=== PATIENT | female | born 1950 | race Caucasian/White ===

== ENCOUNTER 2024-06-08 16:37 | Inpatient (IN) | payer MEDICARE, SELFPAY ==
[2024-06-08] VITALS (12 sets, daily range): BP systolic 112–133; BP diastolic 64–79; PULSE 111–126; RESP 13–23; TEMP 37.1; O2SAT 93–98
--- NOTE | ~2024-06-08 | XR_ITS ---
XR ankle RT min 3V Ordering provider: Smiley Villa PA-C History: . pain, hot to the touch . Comparison: None. FINDINGS: BONES: No acute fracture or dislocation. malalignment in the calcaneus and talus is noted. Flat foot is also seen. Calcaneus Spur. JOINT SPACES: Narrowing of the subtalar joint. SOFT TISSUES: Soft tissue swelling seen over the dorsum of the plantar aspects of the foot. IMPRESSION: No definite acute osseous abnormality of the right ankle. Malalignment between the calcaneus and talu s is not excluded. CT is better to evaluate the findings. Reviewed, dictated and finalized at location A. IMPRESSION: No definite acute osseous abnormality of the right ankle. Malalignment between the calcaneus and talus is not excluded. CT is better to evaluate the findings.
--- NOTE | ~2024-06-08 | CT_ITS ---
CT abdomen pelvis wo con Ordering provider: Anna Pfeiffer MD History: 74 years Female with . back/abd pain, h/o recent ureteral stent . Comparison: Technique: CT abdomen and pelvis with IV and without oral contrast. Automated exposure control and it erative reconstruction technique were employed. The dose-length product was 1280.47 mGy-cm. Findings: VISUALIZED LOWER CHEST: Dependent atelectatic changes. Soft tissue density seen adjacent to the cardi ac apex which may be a cyst measuring 3.4 x 2.7 cm. UPPER ABDOMINAL ORGANS: Liver: Normal. Gallbladder: Normal. Spleen: Normal. Stomach/duodenum: Sliding hiatus hernia. Pancreas: Normal. Adrenals: Normal. Kidneys: Bilateral double-J stent. Stone in the left kidney upper pole measuring 7 mm. Tiny stone is seen in the left kidney midpole.Mild hydronephrotic changes noted. Mild hydronephrotic changes seen in the right kidney with tiny stone in the lower pole. Small hypodensity seen inferior to the left adrenal pelvis which may be minimal extravasation cyst al so is possible. PELVIC ORGANS: The bladder is normal. BOWEL AND MESENTERY: Colon: No evidence of diverticulitis. Normal appendix. Small Bowel: Normal. No obstruction. Peritoneum/mesentery: No free air or free fluid. No mesenteric lymphadenopathy. RETROPERITONEUM: Mild atheromatous disease of the abdominal aorta. No retroperitoneal lymphadenopat hy. MUSCULOSKELETAL: Superficial soft tissues: The superficial soft tissues are normal. Bones: Age appropriate degenerative changes of the spine. Postoperative changes at the level of L5. Fusion seen at the levels of T11, T12 and L1. S-shaped scol iosis. IMPRESSION: 1. Bilateral double-J stent. 2. Stone in the left kidney upper pole with tiny stone in the midpole. Hydronephrotic changes. 3. Tiny stone in the right kidney lower pole. Hydronephrotic changes. 4. No evidence of appendicitis, diverticulitis or intestinal obstruction. 5. Sliding hiatus hernia with the majority of the stomach in the chest 6. Soft tissue density adjacent to the heart which may be a pericardiac cyst. Follow-up advised. Reviewed, dictated and finalized at location A. IMPRESSION: 1. Bilateral double-J stent. 2. Stone in the left kidney upper pole with tiny stone in the midpole. Hydrone phrotic changes. 3. Tiny stone in the right kidney lower pole. Hydronephrotic changes. 4. No evidence of appendicitis, diverticulitis or intestinal obstruction. 5. Sliding hiatus hernia with the majority of the stomach in the chest 6. Soft tissue density adjacent to the heart which may be a pericardiac cyst. Follow-up advised.
--- NOTE | ~2024-06-08 | CT_ITS ---
Procedure: CT ankle RT wo con Ordering provider: Anna Pfeiffer MD History: . injury/deformity? . Comparison: None. Technique: Thin slice axial CT of the No IV contrast was given. Sagittal and coronal reformatted imag es were also obtained and reviewed. Radiation reduction technique utilized.. The dose-length product was 395.31 mGy-cm. Findings: BONES: No definite fractures seen. Severe osteopenia of the bones is noted. Prominent os calcis is no kaylan. Calcaneus spur. Lateral displacement of the foot compared to the tibia and fibula is noted. Clinical correlation advi sed. JOINT SPACES: Narrowing of the talonavicular joint. Widening of the distance between the calcaneus and in the fibula is noted. SOFT TISSUES: Soft tissue density seen in the subcutaneous tissues medially and laterally suggestive of edema. Fat stranding also seen. IMPRESSION: No evidence of fracture. Severe osteopenia of the bones. Lateral relation of the foot bones compared to the tibia and fibula. Clinical correlation advised. Reviewed, dictated and finalized at location A. IMPRESSION: No evidence of fracture. Severe osteopenia of the bones. Lateral relation of the foot bones compared to the tibia and fibula. Clinical c orrelation advised.
--- NOTE | 2024-06-08 17:10 | ECG_ITS ---
Test Date: 2024-06-08 17:18:38 Measurements Intervals New Site Rate: 120 P: 36 WI: 144 QRS: 14 QRSD: 116 T: -10 QT: 328 QTc: 465 Interpretive Statements SINUS TACHYCARDIA INCOMPLETE RIGHT BUNDLE BRANCH BLOCK BORDERLINE ST-T WAVE ABNORMALITY- ANT/INF LEADS ABNORMAL ECG No previous ECG available for comparison Electronically Signed On 06-09-2024 06:31:18 CDT by Alonzo Robertson D.O.
[2024-06-08 18:44] LABS: Basophils Percent Auto 0.2 % (0.2-1.2); Hematocrit 39.1 % (37.0-47.0); Hemoglobin 12.4 g/dL (12.0-15.0); Immature Granulocyte Absolute 0.13 K/mm3 (0.00-0.031); Immature Granulocyte Percent A 0.7 % (0-0.5); Lymphocytes Absolute Auto 1.74 K/mm3 (0.9-3.2); Mean Corpuscular HGB Conc 31.7 g/dl (32-36); Mean Corpuscular Hemoglobin 32.3 pg (26-34); Mean Corpuscular Volume 101.8 fl (80-100); Mean Platelet Volume 10.6 fl (7.4-10.4); Monocytes Absolute Auto 1.3 K/mm3 (0.1-0.6); Monocytes Percent Auto 7.4 % (2.6-8.5); Neutrophils Absolute Auto 14.2 K/mm3 (1.3-6.7); Neutrophils Percent Auto 81.7 % (45.5-73.1); Platelet Count Result 264 k/mm3 (150-375); Red Blood Count 3.84 M/mm3 (4.2-5.4); Red Cell Distribution Width 13.5 % (11.5-14.5); White Blood Count 17.4 K/mm3 (4.5-10.0)
[2024-06-08 19:08] LABS: Alanine Aminotransferase 8 U/L (6-35); Albumin Level 3.2 g/dL (3.5-5.1); Alkaline Phosphatase 106 U/L (38-126); Anion Gap 9 mmol/L (4-12); Aspartate Amino Transferase 18 U/L (14-36); Bilirubin,Total 0.9 mg/dL (0.2-1.3); Blood Urea Nitrogen 21 mg/dL (7-17); Calcium 8.2 mg/dL (8.4-10.2); Carbon Dioxide 33 mmol/L (22-30); Chloride 91 mmol/L (98-107); Estimated CRCL calculation 52 ml/min; Estimated Glomerular Filt Rate > 60; Glucose 126 mg/dL (65-110); Lipase 40 U/L (23-300); Potassium 3.6 mmol/L (3.4-5.0); Sodium 133 mmol/L (137-145)
[2024-06-08 19:19] LABS: CRP 29.6 mg/dL (<1.0)
[2024-06-08 19:38] LABS: Erythrocyte Sedimentation Rate 114 mm/hr (0-20)
--- NOTE | 2024-06-08 19:53 | ED.GENADULT ---
HPI - General Adult General Chief complaint: Extremity Problem,Nontraumatic Stated complaint: abd pain, R foot pain Time Seen by Provider: 06/08/24 19:05 History of Present Illness HPI narrative: Patient states that she is here because she initially was having pain to her lower back and stomach, though it is better now. She also has pain to R ankle but states this has happened before. History of recent ureter stent. Related Data Home Medications Medication Instructions Recorded Confirmed oxycodone 10 mg tablet 10 mg PO Q4H PRN 06/07/24 06/07/24 Allergies Allergy/AdvReac Type Severity Reaction Status Date / Time Penicillins Allergy Unknown Verified 06/08/24 17:06 Review of Systems Review of Systems: All systems reviewed & are unremarkable except as noted in HPI and below PMFSH Social History Social History Smoking status: Never smoker Exam Narrative: EXAMINATION OF ORGAN SYSTEMS/BODY AREAS: Constitutional: Vital signs per nursing GENERAL: Sleeping HEAD: Normal with no signs of head trauma. EYES: EOMI, conjunctiva normal ENT: Hearing grossly intact LUNGS: Nonlabored breathing. HEART: Tachycardic ABD: [Soft], [nontender to palpation] EXT: What appears to be chronic deformity to bilateral ankles SKIN: Slight redness and tenderness to medial malleolus of ankle NEURO: [Alert. No gross focal sensory or strength deficits.] PSYCH: Normal affect Course Vital Signs Vital signs: Vital Signs Temperature 98.7 F 06/08/24 16:38 Pulse Rate 126 H 06/08/24 16:38 Respiratory Rate 20 06/08/24 16:38 Blood Pressure 122/73 06/08/24 16:38 Pulse Oximetry 93 06/08/24 16:38 Oxygen Delivery Nasal Cannula 06/08/24 16:38 Oxygen Flow Rate 2 06/08/24 16:38 Temperature 98.7 F 06/08/24 16:38 Pulse Rate 103 H 06/09/24 03:10 Respiratory Rate 15 06/09/24 03:10 Blood Pressure 119/84 06/09/24 03:10 Pulse Oximetry 96 06/09/24 03:11 Oxygen Delivery Nasal Cannula 06/09/24 03:11 Oxygen Flow Rate 2 06/09/24 03:11 Medical Decision Making [facility] Narrative Medical decision making narrative: patient with history of recent ureteral stent placement presents with abdominal pain and ankle pain, on evaluation she does have some slight redness to the right ankle however what appears to be chronic deformities to both ankles I suspect most likely inflammatory joint disease, she does however have a white count, and was tachycardic, so blood cultures are ordered infectious protocol initiated with antibiotics started. Urinalysis obviously UTI, white count is elevated at 17 with elevated ESR and CRP, I did obtain a CT abdomen / pelvis to ensure stents are in place. D/w Dr Koch urology [facility] who feels patient should not be transferred as they will not offer any additional resources; I did relate that the stents were placed at outside [facility], as well as the fact that we have no medical records on her here because she is usually in the [facility] system so for her would also allow for continuity of care, the urologist still says that patient should stay here in our hospital. D/w hospitalist for admission. Vital Signs Vital Signs: Vital Signs Temperature 98.7 F 06/08/24 16:38 Pulse Rate 126 H 06/08/24 16:38 Respiratory Rate 20 06/08/24 16:38 Blood Pressure 122/73 06/08/24 16:38 Pulse Oximetry 93 06/08/24 16:38 Oxygen Delivery Nasal Cannula 06/08/24 16:38 Oxygen Flow Rate 2 06/08/24 16:38 Temperature 98.7 F 06/08/24 16:38 Pulse Rate 103 H 06/09/24 03:10 Respiratory Rate 15 06/09/24 03:10 Blood Pressure 119/84 06/09/24 03:10 Pulse Oximetry 96 06/09/24 03:11 Oxygen Delivery Nasal Cannula 06/09/24 03:11 Oxygen Flow Rate 2 06/09/24 03:11 Lab Data 06/08/24 18:36 06/08/24 18:36 Labs: Lab Results 06/08/24 06/08/24 06/08/24 Range/Units 18:36 18:37 20:19 WBC 17.4 H (4.5-10.0) K/mm3 RBC 3.84 L (4.2-5.4) M/mm3 Hgb 12.4 (12.0-15.0) g/dL Hct 39.1 (37.0-47.0) % MCV 101.8 H (80-100) fl MCH 32.3 (26-34) pg MCHC 31.7 L (32-36) g/dl RDW 13.5 (11.5-14.5) % Plt Count 264 (150-375) k/mm3 MPV 10.6 H (7.4-10.4) fl Immature Gran % (Auto) 0.7 H (0-0.5) % Neut % (Auto) 81.7 H (45.5-73.1) % Lymph % (Auto) 10.0 L (18.3-44.2) % Dauphin % (Auto) 7.4 (2.6-8.5) % Eos % (Auto) 0.0 (0-4.4) % Baso % (Auto) 0.2 (0.2-1.2) % Lymph # (Auto) 1.74 (0.9-3.2) K/mm3 Dauphin # (Auto) 1.3 H (0.1-0.6) K/mm3 Eos # (Auto) 0.0 (0-0.3) K/mm3 Baso # (Auto) 0.0 (0.0-0.1) K/mm3 Abs Immat Gran (auto) 0.13 H (0.00-0.031) K/mm3 Absolute Neuts (auto) 14.2 H (1.3-6.7) K/mm3 Absolute Nucleated RBC 0.000 (0.0-0.012) K/mm3 Nucleated RBC % 0.0 (0.0-0.2) % ESR 114 H (0-20) mm/hr PT 14.6 (11.1-14.7) Seconds INR 1.1 APTT 36.6 (22.3-36.8) Seconds Sodium 133 L (137-145) mmol/L Potassium 3.6 (3.4-5.0) mmol/L Chloride 91 L (98-107) mmol/L Carbon Dioxide 33 H (22-30) mmol/L Anion Gap 9 (4-12) mmol/L BUN 21 H (7-17) mg/dL Creatinine 0.90 (0.7-1.0) mg/dL Estim Creat Clear Calc 52 ml/min Estimated GFR > 60 (59 - ) Glucose 126 H (65-110) mg/dL Lactic Acid 1.9 (0.7-2.0) mmol/L Calcium 8.2 L (8.4-10.2) mg/dL Total Bilirubin 0.9 (0.2-1.3) mg/dL AST 18 (14-36) U/L ALT 8 (6-35) U/L Alkaline Phosphatase 106 (38-126) U/L C-Reactive Protein 29.6 H (<1.0) mg/dL Total Protein 7.0 (6.3-8.2) g/dL Albumin 3.2 L (3.5-5.1) g/dL Lipase 40 (23-300) U/L Urine Color (Yellow) Urine Appearance (Clear) Urine pH (5.0-9.0) Ur Specific Mcdonough (1.001-1.035) Urine Protein (Negative) mg/dL Urine Glucose (UA) (Negative) mg/dL Urine Ketones (Negative) mg/dL Ur Blood (Man) (Negative) Urine Nitrate (Negative) Urine Bilirubin (Negative) Urine Urobilinogen (<2.0) mg/dL Add Ur Microanalysis Leukocyte Esterase Rfl (Negative) INES/UL Urine RBC (0-2) /hpf Urine WBC (0-3) /hpf Ur Squamous Epith Cells (Few) /hpf Amorphous Sediment (None) Urine Bacteria /hpf Urine Casts Hyaline Casts (None) /lpf 06/08/24 Range/Units 22:32 WBC (4.5-10.0) K/mm3 RBC (4.2-5.4) M/mm3 Hgb (12.0-15.0) g/dL Hct (37.0-47.0) % MCV (80-100) fl MCH (26-34) pg MCHC (32-36) g/dl RDW (11.5-14.5) % Plt Count (150-375) k/mm3 MPV (7.4-10.4) fl Immature Gran % (Auto) (0-0.5) % Neut % (Auto) (45.5-73.1) % Lymph % (Auto) (18.3-44.2) % Dauphin % (Auto) (2.6-8.5) % Eos % (Auto) (0-4.4) % Baso % (Auto) (0.2-1.2) % Lymph # (Auto) (0.9-3.2) K/mm3 Dauphin # (Auto) (0.1-0.6) K/mm3 Eos # (Auto) (0-0.3) K/mm3 Baso # (Auto) (0.0-0.1) K/mm3 Abs Immat Gran (auto) (0.00-0.031) K/mm3 Absolute Neuts (auto) (1.3-6.7) K/mm3 Absolute Nucleated RBC (0.0-0.012) K/mm3 Nucleated RBC % (0.0-0.2) % ESR (0-20) mm/hr PT (11.1-14.7) Seconds INR APTT (22.3-36.8) Seconds Sodium (137-145) mmol/L Potassium (3.4-5.0) mmol/L Chloride (98-107) mmol/L Carbon Dioxide (22-30) mmol/L Anion Gap (4-12) mmol/L BUN (7-17) mg/dL Creatinine (0.7-1.0) mg/dL Estim Creat Clear Calc ml/min Estimated GFR (59 - ) Glucose (65-110) mg/dL Lactic Acid (0.7-2.0) mmol/L Calcium (8.4-10.2) mg/dL Total Bilirubin (0.2-1.3) mg/dL AST (14-36) U/L ALT (6-35) U/L Alkaline Phosphatase (38-126) U/L C-Reactive Protein (<1.0) mg/dL Total Protein (6.3-8.2) g/dL Albumin (3.5-5.1) g/dL Lipase (23-300) U/L Urine Color Red H (Yellow) Urine Appearance Turbid H (Clear) Urine pH 5.0 (5.0-9.0) Ur Specific Mcdonough 1.022 (1.001-1.035) Urine Protein 1+ H (Negative) mg/dL Urine Glucose (UA) Negative (Negative) mg/dL Urine Ketones Negative (Negative) mg/dL Ur Blood (Man) 1+ H (Negative) Urine Nitrate Positive H (Negative) Urine Bilirubin 1+ H (Negative) Urine Urobilinogen 0.2 (<2.0) mg/dL Add Ur Microanalysis Reviewed Leukocyte Esterase Rfl 3+ H (Negative) INES/UL Urine RBC >100 H (0-2) /hpf Urine WBC >100 H (0-3) /hpf Ur Squamous Epith Cells Many H (Few) /hpf Amorphous Sediment Moderate H (None) Urine Bacteria 4+ H /hpf Urine Casts 11-20 Hyaline Casts Present (None) /lpf Critical Care Time Critical Care Time Critical Care Time: Yes Total Critical Care Time: 31 Discharge Plan Discharge Clinical Impression: Ankle pain, Acute UTI Patient Disposition: Still a Patient Condition: Stable
[2024-06-08 20:11] LABS: INR 1.1; Prothrombin Time 14.6 Seconds (11.1-14.7)
[2024-06-08 20:12] LABS: Partial Thromboplastin Time 36.6 Seconds (22.3-36.8)
[2024-06-08] MEDS: CEFEPIME 2 GM/NS 50 ML 2 GM/50 ML BAG IVPB (20:21)
[2024-06-08 21:00] LABS: Lactic Acid Reflex 1.9 mmol/L (0.7-2.0)
[2024-06-08] MEDS: VANCOMYCIN 1,000 MG/NS 250 ML 1,000 MG/250 ML BAG 250 MG IVPB (21:12)
[2024-06-08 22:57] LABS: Add Urine Microscopic? YES; Appearance Urine Turbid (Clear); Bacteria Urine 4+ /hpf; Bilirubin Urine 1+ (Negative); Blood Urine 1+ (Negative); Color Urine Red (Yellow); Glucose Urine UA Negative (Negative); Hyaline Casts Urine Present /lpf; Ketones Urine Negative (Negative); Leukocyte Esterase Ur 3+ LEU/UL (Negative); Need Manual Microscopic Reviewed; Nitrate Urine Positive (Negative); Protein Urine 1+ mg/dL (Negative); RBC Urine >100 /hpf (0-2); Specific Grav Ur 1.022 (1.001-1.035); Squamous Epithelial Cell Urine Many /hpf (Few); Urobilinogen Urine 0.2 mg/dL (<2.0); WBC Urine >100 /hpf (0-3)
[2024-06-08 22:58] LABS: Amorphous Sediment Urine Moderate
[2024-06-08] MEDS: cefTRIAXone 2 GM/NS 100 ML 2 GM/100 ML BAG IVPB (23:17)
--- NOTE | 2024-06-08 23:37 | PC.NURSE ---
care and report given to SHRAAD Aguilar. all questions answered
[2024-06-09] VITALS (21 sets, daily range): BP systolic 106–124; BP diastolic 60–84; PULSE 93–113; RESP 15–20; TEMP 36.4–36.7; O2SAT 93–97; BMI 36.8
--- NOTE | 2024-06-09 | ECHO_ITS ---
Patient Info Name: Reanna Umana Age: 74 years : 1950 Gender: Female Ht: 59 in Wt: 134 lbs BSA: 1.61 m2 HR: 103 bpm BP: 115 / 66 mmHg Heart Rhythm: Sinus Rhythm, Right Bundle Branch Block Technical Quality: Good Exam Date: 06/09/2024 10:24 AM Exam Location: Echo Lab Patient Status: Inpatient Admit Date: 06/09/2024 Staff Ordering Physician: Pamela Dudley NP Benzene Operator: John Faulkner RDCS Attending Provider: Stephy Hawkins DO Referring Physician: Luis Enrique COOLEY; Exam Type: CA echo doppler color flow Study Info Indications - pericardial cyst noted on ct scan Complete two-dimensional, color flow and Doppler transthoracic echocardiogram is performed. Summary 1. Left ventricular chamber dimension is normal. 2. There is moderate asymmetric basal septal increased left ventricular wall thickness. 3. Left ventricular systolic function is normal, estimated at 60-65%. 4. The left ventricular diastolic function is grade I diastolic dysfunction. 5. Right ventricular systolic function is normal. 6. Left atrial chamber dimension is mildly enlarged. 7. There is mild to moderate aortic valve regurgitation. 8. There is mild tricuspid valve regurgitation. Left Ventricle Left ventricular chamber dimension is normal. Left ventricular systolic function is normal, estimated at 60-65%. There is moderate asymmetric basal septal increased left ventricular wall thickness. Left ventricular septal wall motion is abnormal with septal motion related to bundle branch block. The left ventricular diastolic function is grade I diastolic dysfunction. Right Ventricle Right ventricular chamber dimension is normal. Right ventricular systolic function is normal. Left Atria Left atrial chamber dimension is mildly enlarged. Right Atria Right atrial chamber dimension is normal. Atrial Septum Intact interatrial septum visualized by color flow imaging. Aortic Valve The aortic valve is trileaflet. There is no aortic valve stenosis. There is mild to moderate aortic valve regurgitation. There is mild aortic valve calcification. Pulmonic Valve The pulmonic valve is not well visualized. There is no pulmonic regurgitation. Mitral Valve There is trace mitral valve regurgitation. Tricuspid Valve There is mild tricuspid valve regurgitation. Pericardium/Pleural There is no pericardial effusion. Inferior Vena Cava Inferior vena cava is not well visualized. Aorta The aortic root size at the sinus of Valsalva is normal. Left Ventricular Outflow Tract Name Value Normal LVOT 2D LVOT Diameter 2.0 cm LVOT Doppler LVOT Peak Gradient 7 mmHg LVOT Mean Gradient 4 mmHg LVOT VTI 25 cm LVOT VTI/AV VTI Ratio 1.1 LVOT Stroke Volume 77 ml LVOT CO 6.9 l/min LVOT CI 4.3 l/min/m2 Mitral Valve Name Value Normal MV Doppler MV Decel Owen 375 cm/s2 MV PHT 49 ms MV Area (PHT) 4.5 cm2 4.0-5.0 MV Diastolic Function MV E Peak Velocity 64 cm/s MV A Peak Velocity 138 cm/s MV E/A 0.5 MV Decel Time 169 ms MV Annular TDI MV E/e' (Septal) 16.8 <=8.0 MV E/e' (Lateral) 6.8 <=8.0 MV E/e' (Average) 11.8 Tricuspid Valve Name Value Normal TV Regurgitation Doppler TR Peak Velocity 251 cm/s TR Peak Gradient 25 mmHg Estimated PAP/RSVP RV Systolic Pressure 35 mmHg <36 Aortic Valve Name Value Normal AV Doppler AV Peak Velocity 124 cm/s AV Peak Gradient 6 mmHg AV Mean Gradient 4 mmHg AV VTI 22 cm AV Area (Cont Eq VTI) 3.5 cm2 >=3.0 AV Area (Cont Eq Perico) 3.4 cm2 AV Regurgitation 2D LVOT Area 3.1 cm2 AV Regurgitation Doppler AR Decel Time 721 ms AR Decel Owen 518 cm/s2 AR PHT 209 ms Ventricles Name Value Normal LV Dimensions 2D/MM IVS Diastolic Thickness (2D) 0.8 cm 0.6-1.0 LVID Diastole (2D) 4.5 cm 3.8-5.2 LVIW Diastolic Thickness (2D) 0.9 cm 0.6-0.9 LVID Systole (2D) 2.5 cm 2.2-3.5 LVOT Diameter 2.0 cm LV Mass (2D Cubed) 122.35 g 67.00-162.00 LV Mass Index (2D Cubed) 76 g/m2 43-95 Relative Wall Thickness (2D) 0.40 LV Fractional Shortening/Ejection Fraction 2D/MM LV Fractional Shortening (2D) 44 % 27-45 LV EF (2D Teicholz) 76 % 54-74 LV Diastolic Volume (4C MOD) 50 ml LV EF (4C MOD) 57 % LV Diastolic Volume (2C MOD) 50 ml LV EF (2C MOD) 65 % LV Diastolic Volume (BP MOD) 51 ml 46-106 LV Diastolic Volume Index (BP MOD) 32 ml/m2 29-61 LV Systolic Volume (BP MOD) 20 ml 14-42 LV Systolic Volume Index (BP MOD) 12 ml/m2 8-24 LV EF (BP MOD) 62 % 54-74 LV Diastolic Length (4C) 7.1 cm LV Systolic Length (4C) 5.4 cm LV Stroke Volume (4C MOD) 29 ml Atria Name Value Normal LA Dimensions LA Volume (4C A-L) 25 ml LA Volume (BP A-L) 24 ml RA Dimensions RA Area (4C) 6.6 cm2 <=18.0 Report Signatures
[2024-06-09] MEDS: oxyCODONE/ACETAMINOPHEN (*CRX) 5-325 MG TABLET 1 TABLET PO ×3 (00:26→09:01)
[2024-06-09] MEDS: LACTATED RINGERS 1,000 ML 999 ML IV CONT ×2 (02:34→04:13)
[2024-06-09] MEDS: VANCOMYCIN 1,000 MG/NS 250 ML 1,000 MG/250 ML BAG 250 MG IVPB (02:51)
[2024-06-09 02:57] LABS: Uric Acid 6.8 mg/dL (2.5-7.5)
[2024-06-09 03:15] LABS: Procalcitonin 1.5 ng/mL
--- NOTE | 2024-06-09 04:27 | ADMGEN ---
This patient, Reanna Umana, was admitted to Medical Room 253-01. Patient/family oriented to hospital policies and general routines including ID bracelet, bed and alarms, visiting hours, pain management, procedures, bathroom and other care routines, personal items, smoking policy, room service/diet, and visiting hours. Information on how to activate the Rapid Response Team has been discussed. Patient/Family are encouraged to report perceived risks to care and to ask questions if they do not understand what they are told or what they should do.
--- NOTE | 2024-06-09 08:48 | P.HP_ITS ---
H&P: HPI History of Present Illness Date/Time: 06/09/24 08:48 Chief Complaint: Lower abdominal and Low-Back Pain. Narrative: Patient presented to the hospital with reports of lower-abdominal pain and back pain within the last 2-3 days. She also has pain to R ankle that's noted to be reddened but she states she doesn't know what happened to it. Patient with a recent history of bilatereal ureteral stents placement but she' states she can't recall when they were placed and can't recall if she was advised to go back for removal. Patient's case was D/w her Urologist Dr Koch of [facility] but he felt that patient should not be transferred as they will not offer any additional resources; It was related that the stents were placed at [facility], as well as the fact that we have no medical records on her here because she is usually in the [facility] system so this would allow for continuity of care, but the urologist still stated that patient should stay here in our hospital. Patiedwige's UA was consistent with a UTI, with her abd/pelvis CT showing 1. Bilateral double-J stent. 2. Stone in the left kidney upper pole with tiny stone in the midpole. Hydronephrotic changes. 3. Tiny stone in the right kidney lower pole. Hydronephrotic changes. Review of Systems Review of Systems: All systems reviewed & are unremarkable except as noted in HPI and below PMFSH Family History Family History Mother Cancer Father Heart attack Social History Social History Smoking status: Former smoker Tobacco type: cigarettes Additional smoking assessment comments: very short period Alcohol intake: current Substance use: never Substance use type: does not use Do You Feel Safe in your Home?: Yes Lack of Transportation: No Lack of Food: Never True Current Housing: I Have Housing Concerned About Future Housing: No Difficulty Paying Gas/Electric Bills: No Difficulty Paying for Meds: No Currently Unemployed: No Education: High School Diploma/GED Difficulty w/ Childcare or Family Care: No Spiritual care concerns: No Meds Home Medications and Allergies Home Medications Medication Instructions Recorded Confirmed Type hydrocodone 10 mg-acetaminophen 1 tablet PO Q4H PRN Pain (Scale 11/01/24 11/01/24 History 325 mg tablet Score 4-6) Allergies Allergy/AdvReac Type Severity Reaction Status Date / Time Penicillins Allergy Unknown Verified 06/08/24 17:06 Vital Signs Vital Signs - 24 hr 06/08/24 16:38 06/08/24 18:01 06/08/24 18:31 Temperature 98.7 F Pulse Rate 126 H 112 H 120 H Respiratory Rate 20 18 18 Blood Pressure 122/73 114/64 116/76 Pulse Oximetry 93 95 95 Oxygen Delivery Nasal Cannula Oxygen Flow Rate 2 06/08/24 20:01 06/08/24 20:15 06/08/24 20:23 Temperature Pulse Rate 115 H 117 H 117 H Respiratory Rate 15 14 16 Blood Pressure 115/67 Pulse Oximetry 95 97 96 Oxygen Delivery Oxygen Flow Rate 06/08/24 20:31 06/08/24 21:01 06/08/24 21:31 Temperature Pulse Rate 116 H 119 H 120 H Respiratory Rate 13 18 16 Blood Pressure 112/67 124/66 116/76 Pulse Oximetry 97 95 95 Oxygen Delivery Oxygen Flow Rate 06/08/24 22:31 06/08/24 23:31 06/08/24 23:32 Temperature Pulse Rate 114 H 111 H 115 H Respiratory Rate 20 17 23 H Blood Pressure 128/77 133/79 Pulse Oximetry 98 98 98 Oxygen Delivery Oxygen Flow Rate 06/09/24 00:04 06/09/24 00:23 06/09/24 00:30 Temperature Pulse Rate 108 H 113 H 110 H Respiratory Rate 18 17 16 Blood Pressure Pulse Oximetry 96 Oxygen Delivery Oxygen Flow Rate 06/09/24 00:31 06/09/24 01:00 06/09/24 01:01 Temperature Pulse Rate 110 H 110 H 110 H Respiratory Rate 20 20 17 Blood Pressure 123/71 118/76 Pulse Oximetry 94 93 93 Oxygen Delivery Oxygen Flow Rate 06/09/24 01:15 06/09/24 01:44 06/09/24 03:10 Temperature Pulse Rate 106 H 106 H 103 H Respiratory Rate 16 16 15 Blood Pressure 119/84 Pulse Oximetry 96 94 97 Oxygen Delivery Oxygen Flow Rate 06/09/24 03:11 06/09/24 04:19 06/09/24 04:00 Temperature 98.1 F Pulse Rate 105 H Respiratory Rate 18 Blood Pressure 115/66 Pulse Oximetry 96 93 93 Oxygen Delivery Nasal Cannula Nasal Cannula Oxygen Flow Rate 2 2 06/09/24 04:46 Temperature Pulse Rate 103 H Respiratory Rate Blood Pressure Pulse Oximetry Oxygen Delivery Oxygen Flow Rate Exam Narrative: HEENT: Atraumatic, VANNESSA, moist mucosa, EOM. Neck: Supple. Lungs: Clear bilaterally. HEART: RRR, no murmurs. ABdomen: Soft, non-tender, non-distended, +ve bowel sounds X4 quadrants. Neuro: Fairly well oriented. No focal neuro deficits noted. SKin: Redness to right-medial ankle. No open areas noted. Extremities: No edema. Right-medial ankle redness. Psych: Calm and co-operative. H&P: Results Labs Labs: Short CBC 06/08/24 Range/Units 18:36 WBC 17.4 H (4.5-10.0) K/mm3 Hgb 12.4 (12.0-15.0) g/dL Hct 39.1 (37.0-47.0) % Plt Count 264 (150-375) k/mm3 BMP 06/08/24 18:36 Sodium 133 L Potassium 3.6 Chloride 91 L Carbon Dioxide 33 H BUN 21 H Creatinine 0.90 Glucose 126 H Calcium 8.2 L Liver Function 06/08/24 Range/Units 18:36 Total Bilirubin 0.9 (0.2-1.3) mg/dL AST 18 (14-36) U/L ALT 8 (6-35) U/L Alkaline Phosphatase 106 (38-126) U/L Albumin 3.2 L (3.5-5.1) g/dL Urine 06/08/24 Range/Units 22:32 Urine Color Red H (Yellow) Urine Appearance Turbid H (Clear) Urine pH 5.0 (5.0-9.0) Ur Specific [place] 1.022 (1.001-1.035) Urine Protein 1+ H (Negative) mg/dL Urine Glucose (UA) Negative (Negative) mg/dL Imaging CT scan - pelvis: Radiologist's impression: IMPRESSION: 1. Bilateral double-J stent. 2. Stone in the left kidney upper pole with tiny stone in the midpole. Hydronephrotic changes. 3. Tiny stone in the right kidney lower pole. Hydronephrotic changes. 4. No evidence of appendicitis, diverticulitis or intestinal obstruction. 5. Sliding hiatus hernia with the majority of the stomach in the chest 6. Soft tissue density adjacent to the heart which may be a pericardiac cyst. Follow-up advised. CT Right Ankle: IMPRESSION: No evidence of fracture. Severe osteopenia of the bones. Lateral relation of the foot bones compared to the tibia and fibula. Clinical correlation advised. Assessment and Plan Assessment and plan (1) Sepsis secondary to UTI: Code(s): A41.9 - Sepsis, unspecified organism; N39.0 - Urinary tract infection, site not specified Status: Acute Assessment and Plan: - On admission with elevated WBC's, Tachycardia, UA +ve for UTI. - Sepsis protocol implemented in the ER. - Continue broad-spectrum IV abx. - Follow blood and urine cultures. - IVF hydration. (2) Cellulitis of right ankle: Code(s): L03.115 - Cellulitis of right lower limb Status: Acute Assessment and Plan: - Covered by current broad-spectrum IV antibiotics. - Monitor closely. (3) Ankle pain: Code(s): M25.579 - Pain in unspecified ankle and joints of unspecified foot Status: Acute Assessment and Plan: - Likely related to cellulitis. - Pain meds PRN. (4) Other chronic pain: Code(s): G89.29 - Other chronic pain Status: Acute Assessment and Plan: - Continue pain meds PRN. Plan Continue current IV abx. Monitor for symptoms progression. Quality VTE Prophylaxis VTE prophylaxis: pharmacologic ordered Hospitalist [facility] Advance Care Plan I have confirmed that the patient's Advanced Care Plan is present, code status is documented, or surrogate decision maker is listed in patient medical record.: Yes Medication Reconciliation I have utilized all available resources to obtain, update and review the patients current medications (includes all prescriptions, OTC, herbals, cannabis, and nutritional supplements).: Yes
[2024-06-09] MEDS: CEFEPIME 1 GM/NS 50 ML 1 GM/50 ML BAG IVPB ×2 (09:01→21:05)
--- NOTE | 2024-06-09 14:10 | PCPTNOTE ---
Patient refused therapy 14:08. Family member in room states she may be up to therapy when she has more pain medicine. Will follow.
[2024-06-10] VITALS (12 sets, daily range): BP systolic 114–119; BP diastolic 61–74; PULSE 93–111; RESP 18–20; TEMP 36.3–36.6; O2SAT 90–98
[2024-06-10] MEDS: VANCOMYCIN 1,500 MG/NS 500 ML 1,500 MG/500 ML BAG 250 MG IVPB (00:42)
[2024-06-10] MEDS: oxyCODONE/ACETAMINOPHEN (*CRX) 5-325 MG TABLET 1 TABLET PO ×3 (00:42→20:25)
[2024-06-10 08:42] LABS: Estimated Glomerular Filt Rate > 60
[2024-06-10 08:45] LABS: Hematocrit 33.2 % (37.0-47.0); Hemoglobin 10.4 g/dL (12.0-15.0); Mean Corpuscular HGB Conc 31.3 g/dl (32-36); Mean Corpuscular Hemoglobin 32.8 pg (26-34); Mean Corpuscular Volume 104.7 fl (80-100); Mean Platelet Volume 11.7 fl (7.4-10.4); Platelet Count Result 259 k/mm3 (150-375); Red Blood Count 3.17 M/mm3 (4.2-5.4); Red Cell Distribution Width 13.6 % (11.5-14.5); White Blood Count 12.4 K/mm3 (4.5-10.0)
--- NOTE | 2024-06-10 08:49 | PCPTNOTE ---
pt refused PT eval at 845 due to pain. RN aware and going to give her pain meds.
[2024-06-10 08:50] LABS: Anion Gap 8 mmol/L (4-12); Blood Urea Nitrogen 19 mg/dL (7-17); Carbon Dioxide 27 mmol/L (22-30); Chloride 98 mmol/L (98-107); Glucose 99 mg/dL (65-110); Potassium 3.8 mmol/L (3.4-5.0); Sodium 133 mmol/L (137-145)
[2024-06-10] MEDS: ENOXAPARIN 40 MG/0.4 ML SYRINGE SUB-Q (08:55)
[2024-06-10] MEDS: LIDOCAINE 5% PATCH 1 PATCH TRANSDERM (08:55)
[2024-06-10] MEDS: CEFEPIME 1 GM/NS 50 ML 1 GM/50 ML BAG IVPB ×2 (08:55→20:23)
--- NOTE | 2024-06-10 09:08 | P.PNIM_ITS ---
Progress Note: A&P Assessment and Plan (1) Sepsis secondary to UTI: Code(s): A41.9 - Sepsis, unspecified organism; N39.0 - Urinary tract infection, site not specified Status: Acute Assessment and Plan: - On admission with elevated WBC's, Tachycardia, UA +ve for UTI. - Sepsis protocol implemented in the ER. - Continue broad-spectrum IV abx. - Continue to follow blood and urine cultures. - IVF hydration. (2) Cellulitis of right ankle: Code(s): L03.115 - Cellulitis of right lower limb Status: Acute Assessment and Plan: - Covered by current broad-spectrum IV antibiotics. - Pain well improving per patient. (3) Ankle pain: Code(s): M25.579 - Pain in unspecified ankle and joints of unspecified foot Status: Acute Assessment and Plan: - Improved. - Likely related to cellulitis. - Pain meds PRN. (4) Other chronic pain: Code(s): G89.29 - Other chronic pain Status: Acute Assessment and Plan: - Continue pain meds PRN. Plan Continue current IV abx. Monitor for symptoms progression. Time Spent With Patient Time with patient: 15 - 25 minutes Subjective Date/time seen: 06/10/24 09:08 Patient states she's alive and well. States her right foot doesn't hurt as much now and can move foot in bed without screaming. Interval history: Patient presented to the ER with lower abdominal and lower back pains. Patien's UA was consistent with a UTI, with her abd/pelvis CT showing Bilateral double-J stents and tee renal stones. Patient met Sepsis protocol and she's being treated with IV abx as we follow cultures. Review of Systems Review of Systems: All systems reviewed & are unremarkable except as noted in HPI and below Exam Narrative: GENERAL: Generalized muscle weakness. HEENT: Atraumatic, VANNESSA, moist mucosa, EOM. Neck: Supple. Lungs: Clear bilaterally. HEART: RRR, no murmurs. ABdomen: Soft, non-tender, non-distended, +ve bowel sounds X4 quadrants. Neuro: Fairly well oriented. No focal neuro deficits noted. SKin: Redness to right-medial ankle. No open areas noted. Extremities: No edema. Right-medial ankle with slight redness. Psych: Calm and co-operative. Objective Data Vital Signs Vital Signs: Vital Signs - 24 hr 06/09/24 14:36 06/09/24 12:00 06/09/24 16:00 Temperature Pulse Rate 103 H 93 Respiratory Rate Blood Pressure 106/62 Pulse Oximetry Oxygen Delivery Oxygen Flow Rate 06/09/24 20:56 06/09/24 21:00 06/09/24 20:00 Temperature 97.6 F Pulse Rate 110 H 111 H Respiratory Rate 20 Blood Pressure 124/60 Pulse Oximetry 94 94 Oxygen Delivery Nasal Cannula Oxygen Flow Rate 2 06/10/24 00:04 06/10/24 04:00 06/10/24 06:00 Temperature 97.4 F L Pulse Rate 105 H 107 H 109 H Respiratory Rate 20 Blood Pressure 119/61 Pulse Oximetry 96 Oxygen Delivery Oxygen Flow Rate 06/10/24 08:06 Temperature Pulse Rate 111 H Respiratory Rate Blood Pressure 114/67 Pulse Oximetry 95 Oxygen Delivery Oxygen Flow Rate Intake/Output Intake/Output: Intake & Output 06/07/24 06/08/24 06/09/24 06/10/24 23:59 23:59 23:59 23:59 Intake Total 300 1890 100 Balance 300 1890 100 Meds/Results Medications: Active Medications Generic Name Dose Route Start Last Admin Trade Name Freq PRN Reason Stop Dose Admin Enoxaparin Sodium 40 mg 06/10/24 09:00 06/10/24 08:55 Enoxaparin 40 Mg/0.4 Ml Syringe SUB-Q 40 mg DAILY ADRIEL Administration Cefepime HCl 1 gm in 50 mls @ 100 mls/hr 06/09/24 08:00 06/10/24 08:55 Maxipime 1 Gm/Ns 50 Ml IVPB 100 mls/hr Q12H ADRIEL Administration Vancomycin HCl 1,500 mg in 500 mls @ 250 mls/hr 06/10/24 19:00 Vancomycin 1,500 Mg/Ns 500 Ml IVPB Q24H ADRIEL Lidocaine 1 patch 06/09/24 14:47 06/10/24 08:55 Lidocaine 5% Patch TRANSDERM 1 patch DAILY ADRIEL Administration Oxycodone/Acetaminophen 1 tablet 06/09/24 02:35 06/10/24 05:29 Oxycodone/Acetaminophen (*Crx) 5-325 Mg Tablet PO 1 tablet Q4H PRN Administration Pain Rated 7-10 Perflutren Lipid Microsphere 0 ml 06/09/24 07:51 Perflutren Lipid Microspheres 1.5 Ml Vial Diluted To 10 Ml Total Volume IV PUSH 06/12/24 07:51 ONCE PRN adequate visualization Protocol Tizanidine HCl 2 mg 06/09/24 14:46 Tizanidine Hcl 2 Mg Tablet PO Q6H PRN Muscle Spasms Radiology Results: ITS Impressions Ankle X-Ray 06/08/24 17:22 IMPRESSION: No definite acute osseous abnormality of the right ankle. Malalignment between the calcaneus and talus is not excluded. CT is better to evaluate the findings. Abdomen/Pelvis CT 06/08/24 20:39 IMPRESSION: 1. Bilateral double-J stent. 2. Stone in the left kidney upper pole with tiny stone in the midpole. Hydronephrotic changes. 3. Tiny stone in the right kidney lower pole. Hydronephrotic changes. 4. No evidence of appendicitis, diverticulitis or intestinal obstruction. 5. Sliding hiatus hernia with the majority of the stomach in the chest 6. Soft tissue density adjacent to the heart which may be a pericardiac cyst. Follow-up advised. Ankle CT 06/08/24 21:14 IMPRESSION: No evidence of fracture. Severe osteopenia of the bones. Lateral relation of the foot bones compared to the tibia and fibula. Clinical correlation advised. Labs Labs: Laboratory Results - last 24 hr 06/10/24 06/10/24 06/10/24 05:24 05:24 05:24 WBC 12.4 H RBC 3.17 L Hgb 10.4 L Hct 33.2 L MCV 104.7 H MCH 32.8 MCHC 31.3 L RDW 13.6 Plt Count 259 MPV 11.7 H Sodium 133 L Potassium 3.8 Chloride 98 Carbon Dioxide 27 Anion Gap 8 BUN 19 H Creatinine Cancelled 0.60 L Estim Creat Clear Calc Cancelled Not Reportable Estimated GFR Cancelled Glucose Calcium 06/10/24 05:24 WBC RBC Hgb Hct MCV MCH MCHC RDW Plt Count MPV Sodium Potassium Chloride Carbon Dioxide Anion Gap BUN Creatinine Estim Creat Clear Calc Estimated GFR > 60 Glucose 99 Calcium 8.0 L Quality VTE Prophylaxis VTE prophylaxis: pharmacologic ordered Hospitalist [facility] Advance Care Plan I have confirmed that the patient's Advanced Care Plan is present, code status is documented, or surrogate decision maker is listed in patient medical record.: Yes Medication Reconciliation I have utilized all available resources to obtain, update and review the patients current medications (includes all prescriptions, OTC, herbals, cannabis , and nutritional supplements).: Yes
--- NOTE | 2024-06-10 10:18 | PCOTNOTE ---
Attempted OT evaluation. Patient refused at this time due to not feeling well. RN aware. Will follow.
--- NOTE | 2024-06-10 14:07 | PCPTNOTE ---
pt refused PT evaluation 1405;
[2024-06-11] VITALS (12 sets, daily range): BP systolic 111–131; BP diastolic 53–68; PULSE 80–102; RESP 16–20; TEMP 36.2–36.5; O2SAT 93–97
--- NOTE | 2024-06-11 01:08 | PC.NURSE ---
Daylight Savings Time For Daylight Savings Time Ending in the Fall - Clocks are moved back. For Daylight Savings Time Beginning in the Spring - Clocks are moved ahead. For [facility], the time of change occurs at 0200 hrs. Time is taken from the chief service observer. This entry on the patient's chart recognizes the change in time reflected during documentation. Example: 2 entries for vital signs may be charted for 0200 hrs.
--- NOTE | 2024-06-11 08:43 | PCOTNOTE ---
Attempted OT evaluation. Patient refuses therapy at this time.
[2024-06-11 09:23] LABS: Hematocrit 35.7 % (37.0-47.0); Hemoglobin 10.9 g/dL (12.0-15.0); Mean Corpuscular HGB Conc 30.5 g/dl (32-36); Mean Corpuscular Hemoglobin 32.2 pg (26-34); Mean Corpuscular Volume 105.6 fl (80-100); Mean Platelet Volume 11.1 fl (7.4-10.4); Platelet Count Result 284 k/mm3 (150-375); Red Blood Count 3.38 M/mm3 (4.2-5.4); Red Cell Distribution Width 13.4 % (11.5-14.5); White Blood Count 9.6 K/mm3 (4.5-10.0)
[2024-06-11 09:37] LABS: Anion Gap 7 mmol/L (4-12); Blood Urea Nitrogen 16 mg/dL (7-17); Calcium 8.1 mg/dL (8.4-10.2); Carbon Dioxide 30 mmol/L (22-30); Chloride 99 mmol/L (98-107); Estimated Glomerular Filt Rate > 60; Glucose 81 mg/dL (65-110); Potassium 3.4 mmol/L (3.4-5.0); Sodium 136 mmol/L (137-145)
[2024-06-11] MEDS: LIDOCAINE 5% PATCH 1 PATCH TRANSDERM (09:38)
[2024-06-11] MEDS: ENOXAPARIN 40 MG/0.4 ML SYRINGE SUB-Q (09:38)
[2024-06-11] MEDS: CEFEPIME 1 GM/NS 50 ML 1 GM/50 ML BAG IVPB ×2 (09:38→20:20)
--- NOTE | 2024-06-11 10:40 | PCPTNOTE ---
pt refused PT evaluation-- stated do not want any therapy
--- NOTE | 2024-06-11 10:46 | PCOTNOTE ---
Patient refuses evaluation and reports not wanting therapy.
--- NOTE | 2024-06-11 11:12 | P.PNIM_ITS ---
Progress Note: A&P Assessment and Plan (1) Sepsis secondary to UTI: Code(s): A41.9 - Sepsis, unspecified organism; N39.0 - Urinary tract infection, site not specified Status: Acute Assessment and Plan: - On admission with elevated WBC's, Tachycardia, UA +ve for UTI. - Sepsis protocol implemented in the ER. - Urine culture growing VRE. - Vancomycin dc'd and we'll continue Cefepime. - Continue to follow blood and urine cultures. - Encouraged with fluid intake. (2) Cellulitis of right ankle: Code(s): L03.115 - Cellulitis of right lower limb Status: Acute Assessment and Plan: - Possibly chronic mild redness to R. Medial ankle vs/+ cellulitis vs gouty art hritis vs other. - Appears not acutely infected and pt reports able to move ankle without any pain today. - We'll hold on further abx for now with VRE. - Continue Cefepime. - Monitor for now. (3) Ankle pain: Code(s): M25.579 - Pain in unspecified ankle and joints of unspecified foot Status: Acute Assessment and Plan: - Much improved. - Possibly related to cellulitis/vs+gouty arthritis vs chronic. - Continue pain meds PRN. (4) Other chronic pain: Code(s): G89.29 - Other chronic pain Status: Acute Assessment and Plan: - Continue pain meds PRN. Plan Continue current IV abx. Monitor for symptoms progression. Time Spent With Patient Time with patient: 15 - 25 minutes Subjective Date/time seen: 06/11/24 11:12 Patient reports that she doesn't know why she's in the hospital and nobody is giving her any information for weeks now. States she doesn't know where her family is and she never agreed to be brought here. Interval history: Patient presented to the ER with lower abdominal and lower back pains. Patien's UA was consistent with a UTI, with her abd/pelvis CT showing Bilateral double-J stents and tee renal stones. Patient met Sepsis protocol and she's being treated with IV abx for UTI Sepsis, as we still follow cultures. Patient seems upset this AM. Updated on reason for hospitalization and treatment plan, pt stating now at least someone has given her some information. Review of Systems Review of Systems: All systems reviewed & are unremarkable except as noted in HPI and below Exam Narrative: GENERAL: Generalized muscle weakness, flat affect and seems upset today. HEENT: Atraumatic, VANNESSA, moist mucosa, EOM. Neck: Supple. Lungs: Clear bilaterally. HEART: RRR, no murmurs. ABdomen: Soft, non-tender, non-distended, +ve bowel sounds X4 quadrants. Neuro: Fairly well oriented. No focal neuro deficits noted. SKin: Minimal redness to right-medial ankle. No open areas noted. Extremities: No edema. Right-medial ankle with slight redness. Psych: Calm and co-operative. Objective Data Vital Signs Vital Signs: Vital Signs - 24 hr 06/10/24 14:00 06/10/24 16:00 06/10/24 20:20 Temperature 97.8 F Pulse Rate 96 93 93 Respiratory Rate 20 20 Blood Pressure 114/69 Pulse Oximetry 90 90 Oxygen Delivery Nasal Cannula Oxygen Flow Rate 2 Fraction of Inspired Oxygen 06/10/24 22:00 06/10/24 20:00 06/11/24 00:04 Temperature 97.9 F Pulse Rate 100 98 93 Respiratory Rate 18 Blood Pressure 119/74 Pulse Oximetry 98 Oxygen Delivery Oxygen Flow Rate Fraction of Inspired Oxygen 06/11/24 04:01 06/11/24 06:00 06/11/24 08:51 Temperature 97.7 F Pulse Rate 94 94 Respiratory Rate 18 Blood Pressure 111/53 L Pulse Oximetry 96 95 Oxygen Delivery Nasal Cannula Oxygen Flow Rate 2 Fraction of Inspired Oxygen 28 Intake/Output Intake/Output: Intake & Output 06/08/24 06/09/24 06/10/24 06/11/24 23:59 23:59 23:59 22:59 Intake Total 300 1890 360 Balance 300 1890 360 Meds/Results Medications: Active Medications Generic Name Dose Route Start Last Admin Trade Name Freq PRN Reason Stop Dose Admin Enoxaparin Sodium 40 mg 06/10/24 09:00 06/11/24 09:38 Enoxaparin 40 Mg/0.4 Ml Syringe SUB-Q 40 mg DAILY ADRIEL Administration Cefepime HCl 1 gm in 50 mls @ 100 mls/hr 06/09/24 08:00 06/11/24 09:38 Maxipime 1 Gm/Ns 50 Ml IVPB 100 mls/hr Q12H ADRIEL Administration Lidocaine 1 patch 06/09/24 14:47 06/11/24 09:38 Lidocaine 5% Patch TRANSDERM 1 patch DAILY ADRIEL Administration Oxycodone/Acetaminophen 1 tablet 06/09/24 02:35 06/10/24 20:25 Oxycodone/Acetaminophen (*Crx) 5-325 Mg Tablet PO 1 tablet Q4H PRN Administration Pain Rated 7-10 Perflutren Lipid Microsphere 0 ml 06/09/24 07:51 Perflutren Lipid Microspheres 1.5 Ml Vial Diluted To 10 Ml Total Volume IV PUSH 06/12/24 07:51 ONCE PRN adequate visualization Protocol Tizanidine HCl 2 mg 06/09/24 14:46 Tizanidine Hcl 2 Mg Tablet PO Q6H PRN Muscle Spasms Radiology Results: ITS Impressions Ankle X-Ray 06/08/24 17:22 IMPRESSION: No definite acute osseous abnormality of the right ankle. Malalignment between the calcaneus and talus is not excluded. CT is better to evaluate the findings. Abdomen/Pelvis CT 06/08/24 20:39 IMPRESSION: 1. Bilateral double-J stent. 2. Stone in the left kidney upper pole with tiny stone in the midpole. Hydronephrotic changes. 3. Tiny stone in the right kidney lower pole. Hydronephrotic changes. 4. No evidence of appendicitis, diverticulitis or intestinal obstruction. 5. Sliding hiatus hernia with the majority of the stomach in the chest 6. Soft tissue density adjacent to the heart which may be a pericardiac cyst. Follow-up advised. Ankle CT 06/08/24 21:14 IMPRESSION: No evidence of fracture. Severe osteopenia of the bones. Lateral relation of the foot bones compared to the tibia and fibula. Clinical correlation advised. Labs Labs: Laboratory Results - last 24 hr 06/11/24 08:45 WBC 9.6 RBC 3.38 L Hgb 10.9 L Hct 35.7 L MCV 105.6 H MCH 32.2 MCHC 30.5 L RDW 13.4 Plt Count 284 MPV 11.1 H Sodium 136 L Potassium 3.4 Chloride 99 Carbon Dioxide 30 Anion Gap 7 BUN 16 Creatinine 0.70 Estim Creat Clear Calc Not Reportable Estimated GFR > 60 Glucose 81 Calcium 8.1 L Quality VTE Prophylaxis VTE prophylaxis: pharmacologic ordered Hospitalist [facility] Advance Care Plan I have confirmed that the patient's Advanced Care Plan is present, code status is documented, or surrogate decision maker is listed in patient medical record.: Yes Medication Reconciliation I have utilized all available resources to obtain, update and review the patients current medications (includes all prescriptions, OTC, herbals, cannabis, and nutritional supplements).: Yes
[2024-06-11] MEDS: oxyCODONE/ACETAMINOPHEN (*CRX) 5-325 MG TABLET 1 TABLET PO ×2 (13:05→20:20)
[2024-06-12] VITALS (12 sets, daily range): BP systolic 123–128; BP diastolic 66–74; PULSE 91–98; RESP 14–22; TEMP 36.2–36.7; O2SAT 94–98
[2024-06-12] MEDS: CEFEPIME 1 GM/NS 50 ML 1 GM/50 ML BAG IVPB (09:19)
[2024-06-12] MEDS: LIDOCAINE 5% PATCH 1 PATCH TRANSDERM (09:20)
[2024-06-12] MEDS: ENOXAPARIN 40 MG/0.4 ML SYRINGE SUB-Q (09:20)
--- NOTE | 2024-06-12 11:31 | PCNFU ---
Nutrition Follow-Up Complete: Moderate Protein Calorie Malnutrition as related to inadequate oral intake as evidenced by < 75% of EER for > 7 days; significant weight loss reported to 30 ibs in 3 months; mild subcutaneous fat loss (orbital fat pads) moderate muscle wasting (temporalis). Meet estimated nutritional needs - Progressing. Continue with same goal Goal: Pt current nutrition is Regular. Intakes varied 10-100%. Nutritional ice cream BID for additional 270 kcal and 9 g protein each Nutrition recommendation: No new nutrition recommendations. Continue with current nutrition care plan. Can monitor every 5 days Last recorded weight is 82.6 kg. Bowel Motility: +1 BM 06/12/24 Labs Reviewed: No labs 06/12/24. 06/11/24: Hg 10.9, Hct 35.7, Na 136 Meds Noted: Cefepime Skin: cellulitis R ankle. No pressure areas Additional Notes: Appetite is varied. Per notes, having some confusion at times. Supplements are on. Will monitor weight labs, skin, oral intake, meds every 5 days.
[2024-06-12] MEDS: oxyCODONE/ACETAMINOPHEN (*CRX) 5-325 MG TABLET 1 TABLET PO ×2 (12:57→20:14)
--- NOTE | 2024-06-12 15:14 | PM.IMPN ---
Progress Note: A&P Assessment and Plan (1) Sepsis secondary to UTI: Code(s): A41.9 - Sepsis, unspecified organism; N39.0 - Urinary tract infection, site not specified Status: Acute Assessment and Plan: - On admission with elevated WBC's, Tachycardia, UA +ve for UTI. - Sepsis protocol implemented in the ER. - Urine culture growing VRE. - Vancomycin dc'd and Cefepime discontinued per ID Pharmacist. - Patient started on Levaquin. - No fevers and WBC's continue to trend down. - Continue to follow blood and urine cultures. - Encouraged with fluid intake. (2) Cellulitis of right ankle: Code(s): L03.115 - Cellulitis of right lower limb Status: Acute Assessment and Plan: - Possibly chronic redness to R. Medial ankle vs/+ cellulitis vs gouty arthritis vs other. - Resolved. - Patient reports pain is almost gone and she's able to move her foot comfortably in bed without pain. - Patient noted to have crossed legs on the bed which she was previously unable to do due to pain. - Pain meds PRN for now. (3) Ankle pain: Code(s): M25.579 - Pain in unspecified ankle and joints of unspecified foot Status: Acute Assessment and Plan: - Much improved and only minimal and almost gone per pt. - Possibly related to cellulitis/vs+gouty arthritis vs chronic. - Continue pain meds PRN. (4) Other chronic pain: Code(s): G89.29 - Other chronic pain Status: Acute Assessment and Plan: - Continue pain meds PRN. Plan Started on Levaquin today and we'll consider discharge in AM if WBC's improved and no acute changes. Time Spent With Patient Time with patient: 15 - 25 minutes Subjective Date/time seen: 06/12/24 15:14 Patient states she doesn't know how she feels, maybe she feels alright but just wants to sleep for now. Interval history: Patient presented to the ER with lower abdominal and lower back pains. Patien's UA was consistent with a UTI, with her abd/pelvis CT showing Bilateral double-J stents and tee renal stones. Patient met Sepsis protocol and she's being treated with IV abx for UTI Sepsis. Patient's urine culture has grown VRE Faecium and patient started on Levaquin per ID pharmacist recommendations. Patient progressing well with no fevers and WBC's trending down. . Review of Systems Review of Systems: All systems reviewed & are unremarkable except as noted in HPI and below Exam Narrative: GENERAL: Generalized muscle weakness, flat affect and sleepy. HEENT: Atraumatic, VANNESSA, moist mucosa, EOM. Neck: Supple. Lungs: Clear bilaterally. HEART: RRR, no murmurs. ABdomen: Soft, non-tender, non-distended, +ve bowel sounds X4 quadrants. Neuro: Fairly well oriented. No focal neuro deficits noted. SKin: Minimal redness to right-medial ankle. No open areas noted. Extremities: No edema. Right-medial ankle redness resolved. Psych: Flat affect. Objective Data Vital Signs Vital Signs: Vital Signs - 24 hr 06/11/24 16:00 06/11/24 21:12 06/11/24 20:20 Temperature 97.7 F Pulse Rate 102 H 98 98 Respiratory Rate 16 16 Blood Pressure 131/68 Pulse Oximetry 97 97 Oxygen Delivery Nasal Cannula Oxygen Flow Rate 2 Fraction of Inspired Oxygen 28 06/11/24 20:00 06/12/24 00:04 06/12/24 04:01 Temperature Pulse Rate 95 91 92 Respiratory Rate Blood Pressure Pulse Oximetry Oxygen Delivery Oxygen Flow Rate Fraction of Inspired Oxygen 06/12/24 05:37 06/12/24 08:00 06/12/24 09:20 Temperature 98.0 F Pulse Rate 96 98 Respiratory Rate 14 Blood Pressure 123/74 Pulse Oximetry 98 98 Oxygen Delivery Nasal Cannula Oxygen Flow Rate 2 Fraction of Inspired Oxygen 06/12/24 12:00 06/12/24 14:00 Temperature 97.1 F L Pulse Rate 93 96 Respiratory Rate 22 H Blood Pressure 125/66 Pulse Oximetry 96 Oxygen Delivery Oxygen Flow Rate Fraction of Inspired Oxygen Intake/Output Intake/Output: Intake & Output 06/10/24 06/11/24 06/11/24 06/12/24 00:59 00:59 23:59 23:59 Intake Total 540 Balance 540 Meds/Results Medications: Active Medications Generic Name Dose Route Start Last Admin Trade Name Freq PRN Reason Stop Dose Admin Enoxaparin Sodium 40 mg 06/10/24 09:00 06/12/24 09:20 Enoxaparin 40 Mg/0.4 Ml Syringe SUB-Q 40 mg DAILY ADRIEL Administration Levofloxacin 750 mg 06/12/24 21:00 Levofloxacin 750 Mg Tablet PO 06/14/24 21:01 DAILY@2100 ADRIEL Lidocaine 1 patch 06/09/24 14:47 06/12/24 09:20 Lidocaine 5% Patch TRANSDERM 1 patch DAILY ADRIEL Administration Oxycodone/Acetaminophen 1 tablet 06/09/24 02:35 06/12/24 12:57 Oxycodone/Acetaminophen (*Crx) 5-325 Mg Tablet PO 1 tablet Q4H PRN Administration Pain Rated 7-10 Tizanidine HCl 2 mg 06/09/24 14:46 Tizanidine Hcl 2 Mg Tablet PO Q6H PRN Muscle Spasms Radiology Results: ITS Impressions Ankle X-Ray 06/08/24 17:22 IMPRESSION: No definite acute osseous abnormality of the right ankle. Malalignment between the calcaneus and talus is not excluded. CT is better to evaluate the findings. Abdomen/Pelvis CT 06/08/24 20:39 IMPRESSION: 1. Bilateral double-J stent. 2. Stone in the left kidney upper pole with tiny stone in the midpole. Hydronephrotic changes. 3. Tiny stone in the right kidney lower pole. Hydronephrotic changes. 4. No evidence of appendicitis, diverticulitis or intestinal obstruction. 5. Sliding hiatus hernia with the majority of the stomach in the chest 6. Soft tissue density adjacent to the heart which may be a pericardiac cyst. Follow-up advised. Ankle CT 06/08/24 21:14 IMPRESSION: No evidence of fracture. Severe osteopenia of the bones. Lateral relation of the foot bones compared to the tibia and fibula. Clinical correlation advised. Quality VTE Prophylaxis VTE prophylaxis: pharmacologic ordered Hospitalist [facility] Advance Care Plan I have confirmed that the patient's Advanced Care Plan is present, code status is documented, or surrogate decision maker is listed in patient medical record.: Yes Medication Reconciliation I have utilized all available resources to obtain, update and review the patients current medications (includes all prescriptions, OTC, herbals, cannabis, and nutritional supplements).: Yes
[2024-06-12] MEDS: levoFLOXacin 750 MG TABLET PO (20:14)
[2024-06-13] VITALS (10 sets, daily range): BP systolic 123–130; BP diastolic 64–72; PULSE 88–102; RESP 18; TEMP 36.6–36.8; O2SAT 91–94
[2024-06-13 05:47] LABS: Hematocrit 33.9 % (37.0-47.0); Hemoglobin 10.5 g/dL (12.0-15.0); Mean Corpuscular Hemoglobin 32.5 pg (26-34); Mean Platelet Volume 10.1 fl (7.4-10.4); Platelet Count Result 345 k/mm3 (150-375); Red Blood Count 3.23 M/mm3 (4.2-5.4); Red Cell Distribution Width 13.3 % (11.5-14.5); White Blood Count 6.6 K/mm3 (4.5-10.0)
[2024-06-13] MEDS: oxyCODONE/ACETAMINOPHEN (*CRX) 5-325 MG TABLET 1 TABLET PO ×2 (08:16→20:22)
[2024-06-13] MEDS: ENOXAPARIN 40 MG/0.4 ML SYRINGE SUB-Q (08:16)
[2024-06-13] MEDS: LIDOCAINE 5% PATCH 1 PATCH TRANSDERM (08:16)
[2024-06-13] MEDS: traMADol HCL (*CRX) 50 MG TABLET PO (10:35)
--- NOTE | 2024-06-13 15:18 | PM.IMPN ---
Progress Note: A&P Assessment and Plan (1) Sepsis secondary to UTI: Code(s): A41.9 - Sepsis, unspecified organism; N39.0 - Urinary tract infection, site not specified Status: Acute Assessment and Plan: - Sepsis resolved. - On admission with elevated WBC's, Tachycardia, UA +ve for UTI. - Sepsis protocol implemented in the ER. - Urine culture growing VRE. - Vancomycin dc'd and Cefepime discontinued per ID Pharmacist. - Patient currently on Levaquin PO. - No fevers and WBC's continue to trend down. - Continue to follow blood and urine cultures. - Encouraged with fluid intake. (2) Cellulitis of right ankle: Code(s): L03.115 - Cellulitis of right lower limb Status: Acute Assessment and Plan: - Possibly chronic redness to R. Medial ankle vs/+ cellulitis vs gouty arthritis vs other. - Resolved. - Patient reports pain is almost gone and she's able to move her foot comfortably in bed without pain. - Patient noted to have crossed legs on the bed which she was previously unable to do due to pain. - Pain meds PRN for now. (3) Ankle pain: Code(s): M25.579 - Pain in unspecified ankle and joints of unspecified foot Status: Acute Assessment and Plan: - Chronic. - Patient takes norco 3-4 times daily at home. - Possibly gouty arthritis vs other chronic. - Continue pain meds PRN. (4) Other chronic pain: Code(s): G89.29 - Other chronic pain Status: Acute Assessment and Plan: - Continue pain meds PRN. Plan PT/OT eval for discharge planning. Discharge home vs SNF Time Spent With Patient Time with patient: 15 - 25 minutes Subjective Date/time seen: 06/13/24 15:18 Patient calm on bedrest and reports pain to tee. LE. States takes norco at home 3-4 times but here they're giving her pain meds only twice a day. States she's not going back to the [facility] that she came [facility] and wants to go home and her will take care of her. Interval history: Patient presented to the ER with lower abdominal and lower back pains. Patien's UA was consistent with a UTI, with her abd/pelvis CT showing Bilateral double-J stents and tee renal stones. Patient met Sepsis protocol and she's being treated with IV abx for UTI Sepsis. Patient's urine culture has grown VRE Faecium and patient started on Levaquin per ID pharmacist recommendations. Patient progressing well with no fevers and WBC's trending down. Patient has been refusing PT/OT and needs home safety eval prior to home d/c or will have to go back to SNF. Family to come and talk to patient regarding PT/OT or SNF discharge as pt refusing advice from hospital staff. . Review of Systems Review of Systems: All systems reviewed & are unremarkable except as noted in HPI and below Exam Narrative: GENERAL: Generalized muscle weakness, flat affect and upset. HEENT: Atraumatic, VANNESSA, moist mucosa, EOM. Neck: Supple. Lungs: Clear bilaterally. HEART: RRR, no murmurs. ABdomen: Soft, non-tender, non-distended, +ve bowel sounds X4 quadrants. Neuro: Fairly well oriented. No focal neuro deficits noted. SKin: Minimal redness to right-medial ankle. No open areas noted. Extremities: No edema. Right-medial ankle redness resolved. Psych: Flat affect, upset. Objective Data Vital Signs Vital Signs: Vital Signs - 24 hr 06/12/24 16:00 06/12/24 18:43 06/12/24 18:49 Temperature Pulse Rate 94 Respiratory Rate Blood Pressure Pulse Oximetry 94 94 Oxygen Delivery Room Air Fraction of Inspired Oxygen 06/12/24 22:00 06/12/24 20:00 06/12/24 20:00 Temperature 97.4 F L Pulse Rate 96 97 96 Respiratory Rate 18 18 Blood Pressure 128/73 Pulse Oximetry 94 94 Oxygen Delivery Room Air Fraction of Inspired Oxygen 28 06/13/24 00:00 06/13/24 04:00 06/13/24 06:00 Temperature 98.3 F Pulse Rate 93 90 95 Respiratory Rate 18 Blood Pressure 130/64 Pulse Oximetry 91 Oxygen Delivery Fraction of Inspired Oxygen 06/13/24 08:15 06/13/24 08:00 06/13/24 12:00 Temperature Pulse Rate 99 98 Respiratory Rate Blood Pressure Pulse Oximetry 92 Oxygen Delivery Room Air Fraction of Inspired Oxygen Intake/Output Intake/Output: Intake & Output 06/11/24 06/11/24 06/12/24 06/13/24 00:59 23:59 23:59 23:59 Intake Total 660 Balance 660 Meds/Results Medications: Active Medications Generic Name Dose Route Start Last Admin Trade Name Freq PRN Reason Stop Dose Admin Enoxaparin Sodium 40 mg 06/10/24 09:00 06/13/24 08:16 Enoxaparin 40 Mg/0.4 Ml Syringe SUB-Q 40 mg DAILY ADRIEL Administration Levofloxacin 750 mg 06/12/24 21:00 06/12/24 20:14 Levofloxacin 750 Mg Tablet PO 06/14/24 21:01 750 mg DAILY@2100 ADRIEL Administration Lidocaine 1 patch 06/09/24 14:47 06/13/24 08:16 Lidocaine 5% Patch TRANSDERM 1 patch DAILY ADRIEL Administration Oxycodone/Acetaminophen 1 tablet 06/09/24 02:35 06/13/24 08:16 Oxycodone/Acetaminophen (*Crx) 5-325 Mg Tablet PO 1 tablet Q4H PRN Administration Pain Rated 7-10 Tizanidine HCl 2 mg 06/09/24 14:46 Tizanidine Hcl 2 Mg Tablet PO Q6H PRN Muscle Spasms Radiology Results: ITS Impressions Ankle X-Ray 06/08/24 17:22 IMPRESSION: No definite acute osseous abnormality of the right ankle. Malalignment between the calcaneus and talus is not excluded. CT is better to evaluate the findings. Abdomen/Pelvis CT 06/08/24 20:39 IMPRESSION: 1. Bilateral double-J stent. 2. Stone in the left kidney upper pole with tiny stone in the midpole. Hydronephrotic changes. 3. Tiny stone in the right kidney lower pole. Hydronephrotic changes. 4. No evidence of appendicitis, diverticulitis or intestinal obstruction. 5. Sliding hiatus hernia with the majority of the stomach in the chest 6. Soft tissue density adjacent to the heart which may be a pericardiac cyst. Follow-up advised. Ankle CT 06/08/24 21:14 IMPRESSION: No evidence of fracture. Severe osteopenia of the bones. Lateral relation of the foot bones compared to the tibia and fibula. Clinical correlation advised. Labs Labs: Laboratory Results - last 24 hr 06/13/24 05:32 WBC 6.6 RBC 3.23 L Hgb 10.5 L Hct 33.9 L MCV 105.0 H MCH 32.5 MCHC 31.0 L RDW 13.3 Plt Count 345 MPV 10.1 Quality VTE Prophylaxis VTE prophylaxis: pharmacologic ordered Hospitalist [facility] Advance Care Plan I have confirmed that the patient's Advanced Care Plan is present, code status is documented, or surrogate decision maker is listed in patient medical record.: Yes Medication Reconciliation I have utilized all available resources to obtain, update and review the patients current medications (includes all prescriptions, OTC, herbals, cannabis, and nutritional supplements).: Yes
[2024-06-13] MEDS: levoFLOXacin 750 MG TABLET PO (20:22)
[2024-06-14] VITALS (8 sets, daily range): BP systolic 102–134; BP diastolic 65–68; PULSE 94–105; RESP 16–18; TEMP 36.4–36.7; O2SAT 92–93
[2024-06-14] MEDS: oxyCODONE/ACETAMINOPHEN (*CRX) 5-325 MG TABLET 1 TABLET PO ×5 (00:10→21:30)
[2024-06-14] MEDS: LIDOCAINE 5% PATCH 1 PATCH TRANSDERM (09:09)
[2024-06-14] MEDS: ENOXAPARIN 40 MG/0.4 ML SYRINGE SUB-Q (09:09)
--- NOTE | 2024-06-14 10:01 | PM.IMPN ---
Progress Note: A&P Assessment and Plan (1) Sepsis secondary to UTI: Code(s): A41.9 - Sepsis, unspecified organism; N39.0 - Urinary tract infection, site not specified Status: Acute Assessment and Plan: - Resolved. - On admission with elevated WBC's, Tachycardia, UA +ve for UTI. - Sepsis protocol implemented in the ER. - Urine culture growing VRE. - Vancomycin dc'd and Cefepime discontinued per ID Pharmacist. - Patient currently on Levaquin PO. - No fevers and WBC's continue to trend down. - Blood cultures NGTD. - Encouraged with fluid intake. (2) Cellulitis of right ankle: Code(s): L03.115 - Cellulitis of right lower limb Status: Acute Assessment and Plan: - Resolved. - Possibly chronic redness to R. Medial ankle vs/+ cellulitis vs gouty arthritis vs other. - Patient reports minimal pain and states she's able to move her foot comfortably in bed without much pain. - Pain meds PRN for now. (3) Ankle pain: Code(s): M25.579 - Pain in unspecified ankle and joints of unspecified foot Status: Acute Assessment and Plan: - Chronic. - Patient takes norco 3-4 times daily at home. - Possibly gouty arthritis vs other chronic. - Continue pain meds PRN. (4) Other chronic pain: Code(s): G89.29 - Other chronic pain Status: Acute Assessment and Plan: - Continue pain meds PRN. Plan PT/OT eval for discharge planning. Discharge NH vs SNF Time Spent With Patient Time with patient: 15 - 25 minutes Subjective Date/time seen: 06/14/24 10:00 Patient on bedrest and states she's feeling alright and pain is minimal. States she will participate in PT/OT today but does not want to go to the same NH that she came from. She could consider other SNF but not the one she came from. Interval history: Patient presented with lower abdominal and lower back pains. Patien's UA was consistent with a UTI, with her abd/pelvis CT showing Bilateral double-J stents and tee renal stones. Patient met Sepsis protocol and she has been treated with IV abx for UTI Sepsis, and currently on PO Levaquin. Patient's urine culture has grown VRE Faecium. Patient progressing well with no fevers and WBC's trending down. Patient has been refusing PT/OT and needs home safety eval prior to home d/c or will have to go back to SNF. Family friend came yesterday and reported pt cannot take care of pt as he is weak and sick himself. Pt will have to be placed at a SNF facility or NH and plan discussed with pt. . Review of Systems Review of Systems: All systems reviewed & are unremarkable except as noted in HPI and below Exam Narrative: GENERAL: Generalized muscle weakness, flat affect. HEENT: Atraumatic, VANNESSA, moist mucosa, EOM. Neck: Supple. Lungs: Clear bilaterally. HEART: RRR, no murmurs. ABdomen: Soft, non-tender, non-distended, +ve bowel sounds X4 quadrants. Neuro: Fairly well oriented. No focal neuro deficits noted. SKin: Appears redness to right-medial ankle resolved. No open areas noted. Extremities: No edema. Right-medial ankle redness resolved. Psych: Flat affect. Objective Data Vital Signs Vital Signs: Vital Signs - 24 hr 06/13/24 12:00 06/13/24 14:00 06/13/24 16:00 Temperature 98 F Pulse Rate 98 88 95 Respiratory Rate 18 Blood Pressure 127/72 Pulse Oximetry 94 Oxygen Delivery Fraction of Inspired Oxygen 06/13/24 20:33 06/13/24 20:00 06/13/24 20:00 Temperature 97.8 F Pulse Rate 101 H 102 H 101 H Respiratory Rate 18 18 Blood Pressure 123/67 Pulse Oximetry 94 94 Oxygen Delivery Room Air Fraction of Inspired Oxygen 28 06/14/24 00:00 06/14/24 03:24 06/14/24 04:00 Temperature 97.8 F Pulse Rate 99 102 H 94 Respiratory Rate 18 Blood Pressure 127/68 Pulse Oximetry 92 Oxygen Delivery Fraction of Inspired Oxygen 06/14/24 09:10 06/14/24 09:10 Temperature Pulse Rate 104 H Respiratory Rate Blood Pressure Pulse Oximetry Oxygen Delivery Room Air Fraction of Inspired Oxygen Intake/Output Intake/Output: Intake & Output 06/11/24 06/12/24 06/13/24 06/14/24 23:59 23:59 23:59 23:59 Intake Total 660 120 120 Balance 660 120 120 Meds/Results Medications: Active Medications Generic Name Dose Route Start Last Admin Trade Name Freq PRN Reason Stop Dose Admin Enoxaparin Sodium 40 mg 06/10/24 09:00 06/14/24 09:09 Enoxaparin 40 Mg/0.4 Ml Syringe SUB-Q 40 mg DAILY ADRIEL Administration Levofloxacin 750 mg 06/12/24 21:00 06/13/24 20:22 Levofloxacin 750 Mg Tablet PO 06/14/24 21:01 750 mg DAILY@2100 ADRIEL Administration Lidocaine 1 patch 06/09/24 14:47 06/14/24 09:09 Lidocaine 5% Patch TRANSDERM 1 patch DAILY ADRIEL Administration Oxycodone/Acetaminophen 1 tablet 06/09/24 02:35 06/14/24 09:09 Oxycodone/Acetaminophen (*Crx) 5-325 Mg Tablet PO 1 tablet Q4H PRN Administration Pain Rated 7-10 Tizanidine HCl 2 mg 06/09/24 14:46 Tizanidine Hcl 2 Mg Tablet PO Q6H PRN Muscle Spasms Radiology Results: ITS Impressions Ankle X-Ray 06/08/24 17:22 IMPRESSION: No definite acute osseous abnormality of the right ankle. Malalignment between the calcaneus and talus is not excluded. CT is better to evaluate the findings. Abdomen/Pelvis CT 06/08/24 20:39 IMPRESSION: 1. Bilateral double-J stent. 2. Stone in the left kidney upper pole with tiny stone in the midpole. Hydronephrotic changes. 3. Tiny stone in the right kidney lower pole. Hydronephrotic changes. 4. No evidence of appendicitis, diverticulitis or intestinal obstruction. 5. Sliding hiatus hernia with the majority of the stomach in the chest 6. Soft tissue density adjacent to the heart which may be a pericardiac cyst. Follow-up advised. Ankle CT 06/08/24 21:14 IMPRESSION: No evidence of fracture. Severe osteopenia of the bones. Lateral relation of the foot bones compared to the tibia and fibula. Clinical correlation advised. Quality VTE Prophylaxis VTE prophylaxis: pharmacologic ordered Hospitalist [facility] Advance Care Plan I have confirmed that the patient's Advanced Care Plan is present, code status is documented, or surrogate decision maker is listed in patient medical record.: Yes Medication Reconciliation I have utilized all available resources to obtain, update and review the patients current medications (includes all prescriptions, OTC, herbals, cannabis, and nutritional supplements).: Yes
[2024-06-14] MEDS: levoFLOXacin 750 MG TABLET PO (20:18)
[2024-06-15 03:48] VITALS: BP 123/68; PULSE 105; RESP 18; TEMP 36.7; O2SAT 93
--- NOTE | 2024-06-15 07:33 | PM.IMPN ---
Progress Note: A&P Assessment and Plan (1) Sepsis secondary to UTI: Code(s): A41.9 - Sepsis, unspecified organism; N39.0 - Urinary tract infection, site not specified Status: Acute Assessment and Plan: - Resolved. - On admission with elevated WBC's, Tachycardia, UA +ve for UTI. - Sepsis protocol implemented in the ER. - Urine culture growing VRE. - Vancomycin dc'd and Cefepime discontinued per ID Pharmacist. - Patient currently on Levaquin PO. - No fevers and WBC's continue to trend down. - Blood cultures NGTD. - Encouraged with fluid intake. (2) Cellulitis of right ankle: Code(s): L03.115 - Cellulitis of right lower limb Status: Acute Assessment and Plan: - Resolved. - Possibly chronic redness to R. Medial ankle vs/+ cellulitis vs gouty arthritis vs other. - Patient reports minimal pain and states she's able to move her foot comfortably in bed without much pain. - Pain meds PRN for now. (3) Ankle pain: Code(s): M25.579 - Pain in unspecified ankle and joints of unspecified foot Status: Acute Assessment and Plan: - Chronic. - Patient takes norco 3-4 times daily at home. - Possibly gouty arthritis vs other chronic. - Continue pain meds PRN. (4) Other chronic pain: Code(s): G89.29 - Other chronic pain Status: Acute Assessment and Plan: - Continue pain meds PRN. Plan PT/OT eval for discharge planning. Discharge NH vs SNF Subjective Date/time seen: 06/15/24 07:33 Interval history: Patient presented with lower abdominal and lower back pains. Patien's UA was consistent with a UTI, with her abd/pelvis CT showing Bilateral double-J stents and tee renal stones. Patient met Sepsis protocol and she has been treated with IV abx for UTI Sepsis, and currently on PO Levaquin. Patient's urine culture has grown VRE Faecium. Pt will have to be placed at a SNF facility or [place] and plan discussed with pt. Patient medically ready for discharge. Review of Systems Review of Systems: All systems reviewed & are unremarkable except as noted in HPI and below Exam Narrative: GENERAL: Generalized muscle weakness, flat affect. HEENT: Atraumatic, VANNESSA, moist mucosa, EOM. Neck: Supple. Lungs: Clear bilaterally. HEART: RRR, no murmurs. ABdomen: Soft, non-tender, non-distended, +ve bowel sounds X4 quadrants. Neuro: Fairly well oriented. No focal neuro deficits noted. SKin: Appears redness to right-medial ankle resolved. No open areas noted. Extremities: No edema. Right-medial ankle redness resolved. Psych: Flat affect. Objective Data Vital Signs Vital Signs: Vital Signs - 24 hr 06/14/24 09:10 06/14/24 09:10 06/14/24 11:11 Temperature Pulse Rate 104 H Respiratory Rate Blood Pressure Pulse Oximetry Oxygen Delivery Room Air Room Air 06/14/24 10:53 06/14/24 12:00 06/14/24 14:00 Temperature 97.6 F Pulse Rate 100 105 H Respiratory Rate 16 Blood Pressure 102/66 Pulse Oximetry 92 Oxygen Delivery Room Air 06/14/24 16:00 06/14/24 19:27 06/15/24 03:48 Temperature 98.1 F 98.0 F Pulse Rate 101 H 100 105 H Respiratory Rate 18 18 Blood Pressure 134/65 123/68 Pulse Oximetry 93 93 Oxygen Delivery Intake/Output Intake/Output: Intake & Output 06/12/24 06/13/24 06/14/24 06/15/24 23:59 23:59 23:59 23:59 Intake Total 660 120 320 290 Output Total 300 Balance 660 120 320 -10 Meds/Results Medications: Active Medications Generic Name Dose Route Start Last Admin Trade Name Freq PRN Reason Stop Dose Admin Enoxaparin Sodium 40 mg 06/10/24 09:00 06/14/24 09:09 Enoxaparin 40 Mg/0.4 Ml Syringe SUB-Q 40 mg DAILY ADRIEL Administration Lidocaine 1 patch 06/09/24 14:47 06/14/24 09:09 Lidocaine 5% Patch TRANSDERM 1 patch DAILY ADRIEL Administration Oxycodone/Acetaminophen 1 tablet 06/09/24 02:35 06/14/24 21:30 Oxycodone/Acetaminophen (*Crx) 5-325 Mg Tablet PO 1 tablet Q4H PRN Administration Pain Rated 7-10 Tizanidine HCl 2 mg 06/09/24 14:46 Tizanidine Hcl 2 Mg Tablet PO Q6H PRN Muscle Spasms Radiology Results: ITS Impressions Ankle X-Ray 06/08/24 17:22 IMPRESSION: No definite acute osseous abnormality of the right ankle. Malalignment between the calcaneus and talus is not excluded. CT is better to evaluate the findings. Abdomen/Pelvis CT 06/08/24 20:39 IMPRESSION: 1. Bilateral double-J stent. 2. Stone in the left kidney upper pole with tiny stone in the midpole. Hydronephrotic changes. 3. Tiny stone in the right kidney lower pole. Hydronephrotic changes. 4. No evidence of appendicitis, diverticulitis or intestinal obstruction. 5. Sliding hiatus hernia with the majority of the stomach in the chest 6. Soft tissue density adjacent to the heart which may be a pericardiac cyst. Follow-up advised. Ankle CT 06/08/24 21:14 IMPRESSION: No evidence of fracture. Severe osteopenia of the bones. Lateral relation of the foot bones compared to the tibia and fibula. Clinical correlation advised. Quality VTE Prophylaxis VTE prophylaxis: pharmacologic ordered
[2024-06-15] MEDS: ENOXAPARIN 40 MG/0.4 ML SYRINGE SUB-Q (09:25)
[2024-06-15] MEDS: LIDOCAINE 5% PATCH 1 PATCH TRANSDERM (09:25)
[2024-06-15] MEDS: oxyCODONE/ACETAMINOPHEN (*CRX) 5-325 MG TABLET 1 TABLET PO ×2 (09:26→14:03)
--- NOTE | 2024-06-15 13:11 | PM.DS ---
DS: Admitting Diagnosis Discharge Date 06/15/2024 Admitting Diagnosis sepsis UTI DS: Discharge Diagnosis Discharge Diagnosis (1) Sepsis secondary to UTI: Code(s): A41.9 - Sepsis, unspecified organism; N39.0 - Urinary tract infection, site not specified Status: Acute Assessment and Plan: - Resolved. - On admission with elevated WBC's, Tachycardia, UA +ve for UTI. - Sepsis protocol implemented in the ER. - Urine culture growing VRE. - Vancomycin dc'd and Cefepime discontinued per ID Pharmacist. - Patient currently on Levaquin PO. - No fevers and WBC's continue to trend down. - Blood cultures NGTD. - Encouraged with fluid intake. (2) Cellulitis of right ankle: Code(s): L03.115 - Cellulitis of right lower limb Status: Acute Assessment and Plan: - Resolved. - Possibly chronic redness to R. Medial ankle vs/+ cellulitis vs gouty arthritis vs other. - Patient reports minimal pain and states she's able to move her foot comfortably in bed without much pain. - Pain meds PRN for now. (3) Ankle pain: Code(s): M25.579 - Pain in unspecified ankle and joints of unspecified foot Status: Acute Assessment and Plan: - Chronic. - Patient takes norco 3-4 times daily at home. - Possibly gouty arthritis vs other chronic. - Continue pain meds PRN. (4) Other chronic pain: Code(s): G89.29 - Other chronic pain Status: Acute Assessment and Plan: - Continue pain meds PRN. Plan PT/OT eval for discharge planning. Discharge NH vs SNF DS: Summary Hospital Course Reason for hospitalization: sepsis UTI Hospital Course: Patient presented to the hospital with reports of lower-abdominal pain and back pain within the last 2-3 days. She also has pain to R ankle that's noted to be reddened but she states she doesn't know what happened to it. Patient with a recent history of bilatereal ureteral stents placement but she' states she can't recall when they were placed and can't recall if she was advised to go back for removal. Patient's case was D/w her Urologist Dr Koch of [facility] but he felt that patient should not be transferred as they will not offer any additional resources; It was related that the stents were placed at [facility], as well as the fact that we have no medical records on her here because she is usually in the [facility] system so this would allow for continuity of care, but the urologist still stated that patient should stay here in our hospital. Vickie's UA was consistent with a UTI, with her abd/pelvis CT showing Stone in the left kidney upper pole with tiny stone in the midpole. Hydronephrotic changes and Bilateral double-J stents and tee renal stones. Patient met Sepsis protocol and she has been treated with IV abx for UTI Sepsis, and currently on PO Levaquin. Patient's urine culture has grown VRE Faecium. Patient progressing well with no fevers and WBC's trending down. Patient has been refusing PT/OT and needs home safety eval prior to home d/c or will have to go back to SNF. Family friend came yesterday and reported pt cannot take care of pt as he is weak and sick himself. Pt will have to be placed at a SNF facility or [place] and plan discussed with pt. patient had acute right ankle pain with differentials including cellulitis versus gout , she was started on cefepime redness and pain improved by day 2 of hospitalization. on 06/13/2024 patient was found to have VRE growing in her urine culture vancomycin was discontinued. Patient had improvement in leukocytosis and was switched to oral Levaquin. Patient also states that the redness and pain in her foot continues to improve. To [place] legs patient was not participating in PT however on 06/14/2024 States she will participate in PT/OT today but does not want to go to the same NH that she came from. She could consider other SNF but not the one she came from. per PT she was a max assist number needed return to SNF. Case Management worked with the patient for placement. On date discharge patient's vital signs are stable, denies pain in legs, lower extremities with bilateral pedal edema no erythema. Status at Discharge Functional status at discharge: wheelchair bound Overall status at discharge: patient is progressing back to baseline Time Spent with Patient Time attestation: Total time spent providing and/or coordinating discharge services: Time spent: Greater than 30 minutes Exam Narrative: GENERAL: Generalized muscle weakness, flat affect. HEENT: Atraumatic, VANNESSA, moist mucosa, EOM. Neck: Supple. Lungs: Clear bilaterally. HEART: RRR, no murmurs. ABdomen: Soft, non-tender, non-distended, +ve bowel sounds X4 quadrants. Neuro: Fairly well oriented. No focal neuro deficits noted. SKin: Appears redness to right-medial ankle resolved. No open areas noted. Extremities: +3 edema. Right-medial ankle redness resolved. Psych: Flat affect. Discharge Plan Discharge Discharging Clinician: Dina Damon Anticipated Discharge Date/Time: 06/15/24 13:14 Patient Disposition: [place] [facility] Activity: may shower Diet: regular Discharge Instructions: Discharge instructions: Take medications as prescribed New medications prescribed: You are activity as tolerated Monitor blood pressures Avoid social areas, you wear a mask when in social settings Encouraged to continue with yearly vaccinations Return to the emergency department if he developed sudden shortness of breath, chest pain, nausea, vomiting, upset stomach or intractable diarrhea Return to the emergency department if you develop fever greater than 101.5 Follow-up with: Your primary care physician within 1-2 weeks for post hospitalization check up Thank you for [facility] for your healthcare needs Patient Instructions: Antibiotic Form, Kidney Stones (DC), Urinary Tract Infection in Older Adults (DC), Suicide Prevention (DC) Stand Alone Forms: General Discharge Information Follow-up/Referrals: UNKNOWN,DOCTOR [Primary Care Provider] - 2 Weeks ( primary care provider) Discharge Medications: Continued tizanidine 2 mg tablet 1 mg PO Q6H PRN (Reason: muscle spams) hydrocodone-acetaminophen 10-325 mg tablet 1 tablet PO Q4H PRN (Reason: Pain (Scale Score 4-6)) Qty: 20 0RF Date of admission: 06/09/24 09:10 Primary Care Provider: UNKNOWN,DOCTOR Admitting Provider: Stephy Hawkins Attending physician on admission: Stephy Hawkins Condition: Stable Quality VTE Prophylaxis VTE prophylaxis: pharmacologic ordered Hospitalist MIPS Heart Failure (Exclusion) Patient has history of Heart Transplant or Left Ventricular Assistive Device?: No IF YES, STOP HERE Heart Failure (Qualifier) Patient has current or prior documentation of LVEF less than or equal to 40%, or mod/servere depressed LVSF?: No IF NO, STOP HERE
[2024-06-15 14:00] VITALS: BP 128/68; PULSE 109; RESP 24; TEMP 36.4; O2SAT 93
--- NOTE | 2024-06-15 14:24 | PCPTNOTE ---
Patient refused to be seen reporting she is ready to go home. Per RN, she will be returning home via ambulance soon.
== END 2024-06-15 16:00 | DRG 872 ==
LOC: ANHED 19:53 → ANH2MED 06-09 02:34
PROVIDERS: Nurse Practitioner Adult Health; Physician Assistant; Admitting Provider Internal Medicine; Emergency Provider Emergency Medicine; Visit Provider Nurse Practitioner Gerontology
DX: A41.9 Sepsis, unspecified organism (principal); N39.0 Urinary tract infection, site not specified; L03.115 Cellulitis of right lower limb; Z16.21 Resistance to vancomycin; M1A.0790 Idiopathic chronic gout, unspecified ankle and foot, without tophus (tophi); M10.9 Gout, unspecified; G89.29 Other chronic pain; Z99.3 Dependence on wheelchair
CPT/HCPCS: 36415; 73610; 73700; 74176; 80048; 80053; 81001; 82565; 83605; 83690; 84145; 84550; 85025; 85027; 85610; 85652; 85730; 86140; 87040; 87086; 87181; 93005; 93306; 96365; 96366; 96367; 97161; 97165; 99285; A9270; G0378; J0692; J0696; J1650; J3370; J7120

== ENCOUNTER 2024-06-29 01:10 | Day surgery (SDC) | payer MEDICARE, SELFPAY ==
[2024-06-21 10:56] VITALS: BMI 30.2
--- NOTE | 2024-06-21 11:30 | PC.NURSE ---
Report to the Outpatient Waiting Room, entrance under the green pavilion located off [facility], at time _08:30am on date _06/29/24 . Planned Procedure Time: __10:30am .? Time changes happen often and if your time is changed the preop area will call you the afternoon before. - You and your visitor will be asked to self-screen and do not enter if you have any COVID symptoms. Please call surgeon if you need to reschedule. - A mask is optional within the hospital at this time. Patients may have clear liquids (water, carbonated beverages, clear teas, apple juice) until 3 hours prior to surgery with a maximum of 20 ounces. - No food from midnight until time of surgery and no smoking (0730am) Take only the following medications with a SIP of water on the morning of surgery: Norco if needed, __Tizanidine as needed DO NOT STOP ANY OF YOUR OTHER PRESCRIPTION MEDICATIONS PRIOR TO SURGERY EXCEPT THE FOLLOWING Medications to discontinue per physician None Date to take last dose None Please no make-up, nail cameroonian, hairspray, perfume, deodorant, or body powder the day of surgery.? No jewelry (including any body piercings) or valuables the day of surgery, leave them at home.? Please take a shower or bath the night before, or the morning of, surgery with an antibacterial soap.? Wear comfortable, loose fitting clothing.? Dr Sarah farnsworth might order preop Lab/Culture if required, Leena will notify you if so. - Jewelry must be removed prior to entering the operating room.? Rings and piercings that are not removed may be cut off. - The hospital will not accept responsibility for valuables.? - Please leave all valuables, including medications, at home the day of surgery. If you are going home after surgery, a licensed regional otr company driver must drive you home.? - NO public transportation without another adult if you receive anesthesia. - We recommend that an adult stay with you for 24 hours following discharge. - We also recommend that you do not drive, make important decision, drink alcoholic beverages, or take any drugs that were not prescribed by your health care provider for at least 24 hours after your discharge time. Follow any additional instructions given to you from your surgeon. Telephone instructions given to __Son ( Garrett) and faxed to Velma OROURKE at [facility] and asked if any additional questions and then verbalized understanding. Patient advised to call surgeon office or pre surgery nurse liaison [phone] if any additional questions.
--- NOTE | 2024-06-26 07:30 | P.HP_ITS ---
History of Present Illness History of Present Illness Consent: Risks, benefits, and alternatives have been discussed and questions answered. Patient agrees to proceed with procedure. Chief complaint: kidney stone Narrative: Reanna Umana is a 74 year old female who has had recent bilateral ureteral stones addressed by my partner Dr. Jordan. He performed cystoscopy with left ureteroscopy extraction of several stones in her distal left ureter. She has a residual stone in her right mid ureter. She presents today for definitive intervention. She is aware of the risks including, but not limited to, need for additional procedures, ureteral injury and need to replace stents Review of Systems Review of Systems: All systems reviewed & are unremarkable except as noted in HPI and below PMFSH Family History Family History Mother Cancer Father Heart attack Social History Social History Smoking status: Never smoker Tobacco type: cigarettes Additional smoking assessment comments: very short period Alcohol intake: current Substance use: never Substance use type: does not use Do You Feel Safe in your Home?: Yes Lack of Transportation: No Lack of Food: Never True Current Housing: I Have Housing Concerned About Future Housing: No Difficulty Paying Gas/Electric Bills: No Difficulty Paying for Meds: No Currently Unemployed: No Education: High School Diploma/GED Difficulty w/ Childcare or Family Care: No Living arrangements: other Additional living arrangements comments: [facility] [phone] Spiritual care concerns: No Meds Home Medications and Allergies Home Medications Medication Instructions Recorded Confirmed Type tizanidine 2 mg tablet 1 mg PO Q6H PRN muscle spams 06/09/24 06/21/24 History hydrocodone 10 mg-acetaminophen 1 tablet PO Q4H PRN Pain (Scale 06/15/24 06/21/24 Rx 325 mg tablet Score 4-6) #20 tabs Allergies Allergy/AdvReac Type Severity Reaction Status Date / Time Penicillins Allergy Intermediate Rash Verified 06/21/24 11:27 Exam Const: General: no acute distress Resp: Effort & Inspection: normal respiratory effort GI: Inspection: non-distended GI Palp: No abdominal tenderness and No Guarding due to palpation present (GI) Auscultation: normal bowel sounds Assessment and Plan Assessment and plan (1) Ureteral calculus: Code(s): N20.1 - Calculus of ureter Status: Acute Assessment and Plan: * Cystoscopy, left ureteral stent removal, right ureteroscopy with stone extraction, possible laser lithotripsy retrograde pyelogram and stent replacement
[2024-06-29] VITALS (16 sets, daily range): BP systolic 114–151; BP diastolic 75–93; PULSE 104–118; RESP 16–24; TEMP 36.5–37.1; O2SAT 92–100
--- NOTE | ~2024-06-29 | XR_ITS ---
INTRAOPERATIVE FLUOROSCOPY: CLINICAL HISTORY: 74 years old Female; BILATERAL RETROGRADE AND BILATERAL STENT REMOVAL PROCEDURE COMMENTS: Limited intraoperative fluoroscopy of the lower abdomen and pelvis was performed. CUMULATIVE DOSE: 41.7 mGy FLUOROSCOPY TIME: 119 seconds FINDINGS/IMPRESSION: Please refer to operative note for further details. Reviewed, dictated and finalized at location A. [employer]ATE ADMINISTRATIVE ASSISTANT
--- NOTE | 2024-06-29 06:36 | WPDHPUPDATE1 ---
History and Physical Update Update Date/Time: 06/29/24 06:36 History and Physical has been reviewed, including an updated exam of the patient. There are NO changes in the patient's condition. Risks, benefits, and alternatives have been discussed and questions answered. Patient agrees to proceed with procedure.
[2024-06-29] MEDS: LACTATED RINGERS 1,000 ML 30 ML IV CONT (08:00)
--- NOTE | 2024-06-29 08:52 | P.PNAN_ITS ---
Anes - Initial Pre Proc Eval Procedure: Operation Date: 06/29/24 10:30 Proposed Procedures p Cystoscopy, Left Retrograde Pyelogram, Left Ureteral Stent Removal, Right Ureteroscopy with Laser Lithotripsy, Right Stone Extraction, Right Ureteral Stent Exchange - Pavel Smith MD Date/Time: 06/29/24 08:52 Surgeon: Pavel Smith MD Pre Op Diagnosis: kidney stone Patient Data Age: 74 Gender: F Height: 1.57 m Weight: 75 kg Allergies Allergy/AdvReac Type Severity Reaction Status Date / Time Penicillins Allergy Intermediate Rash Verified 06/21/24 11:27 Home Medications Medication Instructions Recorded Confirmed Type tizanidine 2 mg tablet 1 mg PO Q6H PRN muscle spams 06/09/24 06/21/24 History hydrocodone 10 mg-acetaminophen 1 tablet PO Q4H PRN Pain (Scale 06/15/24 06/21/24 Rx 325 mg tablet Score 4-6) #20 tabs Patient hx anesthesia problems: none Family hx anesthesia problems: none Results Review: All pre-operative results and documents have been reviewed as part of the pre- operative evaluation. [facility] Family History Family History Mother Cancer Father Heart attack Social History Social History Smoking status: Never smoker Tobacco type: cigarettes Additional smoking assessment comments: very short period Alcohol intake: current Substance use: never Substance use type: does not use Do You Feel Safe in your Home?: Yes Lack of Transportation: No Lack of Food: Never True Current Housing: I Have Housing Concerned About Future Housing: No Difficulty Paying Gas/Electric Bills: No Difficulty Paying for Meds: No Currently Unemployed: No Education: High School Diploma/GED Difficulty w/ Childcare or Family Care: No Living arrangements: other Additional living arrangements comments: [facility] [phone] Spiritual care concerns: No Anes - Eval Final PreProcedure Day of Procedure 06/29/24 08:52 Patient weight: normal Heart: regular rate and rhythm Lungs: clear to auscultation Airway: Mallampati scale and special considerations (Teeth in very poor condition, many missing, reports that none are loose. ) Neurological: alert and oriented Last oral intake: >/= 8 hours ASA classification: III Emergent: no Anesthetic plan: proceed Anesthesia type and monitoring: general LMA and standard monitoring Results Review: All pre-operative results and documents have been reviewed as part of the pre- operative evaluation. Pt from [facility] after recently being released. Hx reviewed. Informed Consent: The patient's anesthetic plan and its attendant risks and benefits were discussed with the patient/family/POA. Questions were solicited and answers provided to the satisfaction of the patient/family/POA.
[2024-06-29] MEDS: ceFAZolin 2 GM/D5W 50 ML 2 GM/50 ML BAG IVPB (09:00)
[2024-06-29] MEDS: LIDOCAINE HCL 2% GEL UROJET 10 ML PKG MUCOUS MEM (09:13)
--- NOTE | 2024-06-29 10:13 | W.PM.PROC2 ---
Procedure Note - Detailed Date of Procedure 06/29/24 Pre-op Diagnosis Bilateral ureteral stones Post-op Diagnosis Other ( 1. Persistent right mid ureteral stone 2. Encrusted retained left ureteral stent) Procedure Performed Cystoscopy, bilateral ureteral stent removal, bilateral retrograde pyelography, bilateral ureteral stone extraction Surgeon Pavel Smith MD Anesthesia General Description of Procedure Patient is brought to the operative suite where she was prepped and draped in routine sterile fashion while in dorsal lithotomy position after the uneventful induction of a general LMA anesthetic. Cystoscopy was undertaken with a 19 F rigid cystoscope. I grabbed the left ureteral stent and was unable to remove because of some encrustations on the proximal coil. I tried repeatedly to pass a wire through the stent without success. I was able to pass a wire in the left renal pelvis alongside the stent. I then performed left flexible ureteroscopy. Simply by moving the flexible ureteral scope along the stent the encrustations came off and I was able to remove the stent. I repeated left ureteroscopy. Several smaller encrustations removed. There were no notable residual stones in her left ureter. I opted to leave a left ureteral stent out. On the right side the stent was removed with ease. Flexible ureteroscopy revealed a 5 mm mid ureteral stone which was removed with 1.9 F disposable stone basket. Again, because of the ease of this manipulation a I opted not to replace a stent. She tolerated this procedure well and was were taken recovery room good condition Drains No Packing No Pathology Yes Complications No immediate complications
[2024-06-29] MEDS: fentaNYL CITRATE INJ (*CRX) 100 MCG/2 ML VIAL 25 MCG IV PUSH ×2 (11:51→13:36)
[2024-06-29] MEDS: oxyCODONE HCL (*CRX) 5 MG TAB IR PO (13:02)
--- NOTE | 2024-06-29 14:13 | SUR.PHASEII ---
1355: Patient vitals are stable. She is unhooked from the monitors and waiting for ride. Patient is being discharged back to [facility] on [address] [place].
--- NOTE | 2024-06-29 15:10 | SUR.PHASEII ---
RN attempted to give report to Jessica DOWNS in [place], [place] 2 times. RN was on hold for an extended period of time twice and then got disconnected both times.
== END 2024-06-29 14:49 ==
PROVIDERS: PCP Internal Medicine; Visit Provider Urology
PROC: (CPT 52352; principal; 2024-06-29 10:30)
DX: N20.1 Calculus of ureter (principal)
CPT/HCPCS: 52352; 74420; 82365; 88300; A9270; C1769; J0690; J1100; J2003; J2405; J2704; J3010; J7120; Q9966